=== PATIENT | female | born 1990 | race Caucasian/White ===

== ENCOUNTER → 2017-09-30 15:34 | Outpatient (REF) | payer MEDICAID, SELFPAY ==
[2017-09-30 23:05] LABS: ALT 70 U/L (12-78); AST 104 U/L (15-37); Albumin 3.9 g/dL (3.4-5.0); Alkaline Phosphatase 102 U/L (46-116); Anion Gap 10.3 mmol/L (3-11); BUN 4 mg/dL (7-18); Bilirubin, Total 1.8 mg/dL (0.2-1.0); CO2 26.7 mmol/L (21.0-32.0); CREATININE 0.76 mg/dL (0.55-1.02); Calcium 8.7 mg/dL (8.5-10.1); Chloride 101 mmol/L (98-107); Glucose 106 mg/dL (70-100); Potassium 3.7 mmol/L (3.5-5.1); Sodium 138 mmol/L (136-145); Total Protein 7.1 g/dL (6.4-8.2)
[2017-10-01 16:25] LABS: Lipase 97 U/L (73-393)
[2017-10-02 11:12] LABS: Hepatitis C Ab w Rflx HCV PCR Negative (NEGAT)
[2017-10-02 11:31] LABS: HIV-1/2 Ag & Ab Screen Negative (NEGAT)
[2017-10-02 13:08] LABS: Syphilis Serology (RPR) Negative (Negative)
[2017-10-02 14:03] LABS: Chlamydia Result Negative; GC Result Negative; Specimen Description VAGINAL
[2017-10-02 20:37] LABS: C.trach, Misc, Amplified RNA Negative (Negative); N.gonorr, Misc, Amplified RNA Negative (Negative); SOURCE: THROAT
== END ==
LOC: NCHCN 15:34
PROVIDERS: PCP Internal Medicine; Visit Provider Nurse Practitioner Family
DX: R94.5 Abnormal results of liver function studies (principal); Z11.3 Encounter for screening for infections with a predominantly sexual mode of transmission; Z11.4 Encounter for screening for human immunodeficiency virus [HIV]; Z11.59 Encounter for screening for other viral diseases; Z87.19 Personal history of other diseases of the digestive system
CPT/HCPCS: 80053; 83690; 86803; 87389; 87491; 87591; 86592

== ENCOUNTER 2017-11-04 16:21 | Outpatient (REF) | payer MEDICAID, SELFPAY ==
[2017-11-04 23:07] LABS: ALT 92 U/L (12-78); AST 142 U/L (15-37); Albumin 3.5 g/dL (3.4-5.0); Alkaline Phosphatase 127 U/L (46-116); Anion Gap 6.2 mmol/L (3-11); BUN 5 mg/dL (7-18); Bilirubin, Total 1.3 mg/dL (0.2-1.0); CO2 31.8 mmol/L (21.0-32.0); CREATININE 0.89 mg/dL (0.55-1.02); Calcium 8.9 mg/dL (8.5-10.1); Chloride 105 mmol/L (98-107); Glucose 102 mg/dL (70-100); Potassium 4.7 mmol/L (3.5-5.1); Sodium 143 mmol/L (136-145); Total Protein 6.9 g/dL (6.4-8.2)
[2017-11-06 13:47] LABS: Chlamydia Result Negative; GC Result Negative; Specimen Description URINE
== END 2017-11-04 16:41 ==
LOC: NCHCN 16:21
PROVIDERS: PCP Internal Medicine; Visit Provider Nurse Practitioner Family
DX: R30.0 Dysuria (principal); Z72.51 High risk heterosexual behavior; R94.5 Abnormal results of liver function studies; Z11.3 Encounter for screening for infections with a predominantly sexual mode of transmission
CPT/HCPCS: 80053; 87491; 87591; 87086

== ENCOUNTER 2018-05-20 15:49 | Outpatient (REF) | payer MEDICAID, SELFPAY ==
--- NOTE | 2018-05-20 14:45 | PAPFT_PTH ---
PATIENT: Courtney Craig LOC: [facility]#:[id number] AGE/SX: 28/F ROOM: RE05/20/[address]: Kaye Bettencourt : 1990 BED: DIS: 05/20/2018 SPEC #: [id number] RECD: 05/21/18 13:01 STATUS: PETR MARIE #: [id number] BELINDA: 05/20/18 14:[address]: Kaye Bettencourt DEPT: [facility] Cytology RECD BY: Cherry Pratt ENTERED: 05/21/18 13:01 SP TYPE: PAPFT OTHR DR: Demi Cárdenas Tissues: 1 - CX/ENDOCX FOR PAP SMEARS Procedures: PAP THIN PREP/UVM Screening HPV DNA PROBE Comments: [id number] (CHLAMYDIA/GC)
[2018-05-20 22:16] LABS: ALT 117 U/L (12-78); AST 210 U/L (15-37); Albumin 3.8 g/dL (3.4-5.0); Alkaline Phosphatase 120 U/L (46-116); Bilirubin, Total 1.4 mg/dL (0.2-1.0); Cholesterol 185 mg/dL (50-200); HDL Cholesterol 98 mg/dL (40-60); LDL CHOLESTEROL 73 mg/dL (<100); Total Protein 6.8 g/dL (6.4-8.2); Triglyceride 96 mg/dL (30-150)
[2018-05-20 22:25] LABS: Bilirubin, Direct 0.66 mg/dL (0.00-0.20)
[2018-05-24 10:59] LABS: HIV-1/2 Ag & Ab Screen Negative (NEGAT)
[2018-05-24 14:03] LABS: Chlamydia Result Negative; GC Result Negative; Specimen Description CERVIX
[2018-05-24 14:04] LABS: Chlamydia Result Negative; GC Result Negative; Specimen Description SEE COMMENTS
== END 2018-05-20 16:09 ==
LOC: NCHCN 15:49
PROVIDERS: PCP Internal Medicine; Visit Provider Registered Nurse
DX: R94.5 Abnormal results of liver function studies (principal); Z72.51 High risk heterosexual behavior; Z11.4 Encounter for screening for human immunodeficiency virus [HIV]; Z11.3 Encounter for screening for infections with a predominantly sexual mode of transmission; Z12.4 Encounter for screening for malignant neoplasm of cervix; Z11.51 Encounter for screening for human papillomavirus (HPV); Z01.419 Encounter for gynecological examination (general) (routine) without abnormal findings
CPT/HCPCS: 80061; 80076; 83721; 87389; 87491; 87591; 88142; 84443; 87624

== ENCOUNTER 2019-09-29 16:24 | Inpatient (IN) | payer MEDICAID, SELFPAY ==
[2019-09-29] VITALS (100 sets, daily range): BP systolic 111–161; BP diastolic 61–97; PULSE 65–105; RESP 7–24; TEMP 36.5–36.6; O2SAT 94–100
[2019-09-29 16:58] LABS: Bilirubin Negative (Negative); Blood Negative (Negative); Clarity Cloudy (Clear); Glucose Negative (Negative); Ketones Negative (Negative); Leukocyte Esterase Trace (Negative); Nitrite Negative (Negative); Specific Gravity >= 1.030 (1.005-1.025)
--- NOTE | 2019-09-29 17:00 | DI.CT_ITS ---
EXAM: CT ABDOMEN PELVIS W CLINICAL HISTORY: Upper abd pain, hx pancreatitis TECHNIQUE: COMPARISON: No exams were available for comparison FINDINGS: CT examination of the abdomen and pelvis was performed with bolus infusion of 77 cc of Omnipaque 350. Images obtained through the lung bases. Liver and spleen appear normal. Pancreas appears normal. Gallbladder and bile ducts are unremarkabl e. Adrenals and kidneys are unremarkable, no evidence of urinary tract obstruction or calcification. No significant abdominal hernia. No abdominal or pelvic adenopathy. Unremarkable appearance of memory care director st ructures. Appendix appears normal. There is normally position cecum and the jejunum lies in the left upper berry drant. There are multiple loops of proximal jejunum which are dilated with mildly thickened mad[place] in the left upper quadrant, the possibility of internal hernia or volvulus is raised, there is a modera te quantity fluid in fecal material throughout the colon and moderate fluid in the remaining small yolis wel. Abdominal aorta is of normal diameter. Superior mesenteric artery lies to the left of the superior m esenteric vein in its mid to distal course but the SMV lies anterior to the SMA near the origin of th e SMA. This finding could be associated with mesenteric volvulus. IMPRESSION: Abnormal group of dilated jejunal loops in left upper quadrant, question internal hernia or mesenteri c volvulus, possible low-grade obstruction. Appropriate follow-up studies requested.
--- NOTE | 2019-09-29 17:01 | ED.GENADUL_ITS ---
Discharge Plan Disposition Patient Disposition: [facility] INPATIENT Condition: Good Discharge Details Chief Complaint: Abd Prob Clinical Impression: Alcoholic gastritis, Alcohol withdrawal, Ileus, unspecified Admit Date/Time: 09/29/19 20:01 Admit Provider: Jaquan Paez Attending Provider: Jaquan Paez Primary Care Provider: Demi Cárdenas ED Provider: Klaus Oliver Discharge Data Discharge Date/Time-TO BE ENTERED AT DEPARTURE: 09/29/19 20:45 Medical Decision Making 29-year-old female presents to the ER stating that she is an alcoholic and has been drinking 5-7 8% 16 ounce beers per day. She has decided to stop drinking. Last drink was last night. She states she now has upper abdominal pain that began last night, it is constant. Similar to previous pancreatitis. Associated with nausea and emesis. She states she was seen at [facility] and left there as they were not doing anything. She arrives to the ER with pulse 96, blood pressure 161/97, temp of 36.6. She is tender in the upper abdomen. Her CIWA score is approximately 30. Differential diagnosis includes alcohol withdrawal syndrome, pancreatitis, gastritis, dehydration, electrolyte abnormalities. Patient was given 1 L fluid bolus, Ativan, Protonix, antiemetic. She is referred for laboratory testing and CT images. Labs noted white count 8, hematocrit 37, platelets 208. Chemistries with total bili 1.5, AST 40, ALT 28. Troponin is negative. Lipase negative. Alcohol level was unmeasurable. CT images: Dilatation of the proximal jejunum measuring up to 3 cm. No evidence of congenital malrotation. Slight stranding in the right upper quadrant. Swirling of the mesenteric vein around the superior mesenteric artery. 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 Case discussed with on-call surgery, Dr. Velez. Does not appear to be an acute surgical process. A lactate is 0.4. Dr. Velez recommends medical management, management of alcohol withdrawal, and does recommend upper GI with small bowel follow-through tomorrow. Case discussed with Dr. Paez and patient to be admitted. Lab Data Lab results reviewed: Yes I reviewed the patient's lab results. Labs: Laboratory Results - last 24 hr 09/29/19 09/29/19 09/29/19 16:54 17:25 17:25 WBC 8.68 RBC 3.91 L Hgb 13.0 Hct 37.2 MCV 95.1 H MCH 33.2 H MCHC 34.9 RDW 12.0 Plt Count 208 MPV 8.6 Immature Gran % 0.3 Neutrophils % 74.7 Lymphocytes % 19.0 Monocytes % 4.8 Eosinophils % 0.9 Basophils % 0.3 Absolute Neutrophils 6.47 Absolute Lymphocytes 1.65 Absolute Monocytes 0.42 Absolute Eosinophils 0.08 Absolute Basophils 0.03 Sodium 141 Potassium 4.0 Chloride 104 Carbon Dioxide 26.5 Anion Gap 10.5 BUN 7 Creatinine 0.79 Estimated GFR/1.73 m2 >= 60.00 Glucose 108 H Calcium 8.9 Magnesium 1.8 Total Bilirubin 1.5 H AST 40 H ALT 28 Alkaline Phosphatase 88 Troponin I < 0.05 Total Protein 7.6 Albumin 4.4 Amylase Lipase 76 Urine Color Yellow Urine Clarity Cloudy Urine pH 8.0 Ur Specific [place] >= 1.030 H Urine Protein 30 H Urine Ketones Negative Urine Blood Negative Urine Nitrite Negative Urine Bilirubin Negative Urine Urobilinogen 1.0 H Ur Leukocyte Esterase Trace H Urine RBC 0-2 Urine WBC 5-10 Ur Epithelial Cells Many Urine Crystals Negative Urine Bacteria Many Urine Casts Negative Urine Mucus Moderate Ur Culture Indicated? No/sq. contamination Urine Glucose Negative Ethyl Alcohol < 3.0 09/29/19 17:25 WBC RBC Hgb Hct MCV MCH MCHC RDW Plt Count MPV Immature Gran % Neutrophils % Lymphocytes % Monocytes % Eosinophils % Basophils % Absolute Neutrophils Absolute Lymphocytes Absolute Monocytes Absolute Eosinophils Absolute Basophils Sodium Potassium Chloride Carbon Dioxide Anion Gap BUN Creatinine Estimated GFR/1.73 m2 Glucose Calcium Magnesium Total Bilirubin AST ALT Alkaline Phosphatase Troponin I Total Protein Albumin Amylase 25 Lipase Urine Color Urine Clarity Urine pH Ur Specific [place] Urine Protein Urine Ketones Urine Blood Urine Nitrite Urine Bilirubin Urine Urobilinogen Ur Leukocyte Esterase Urine RBC Urine WBC Ur Epithelial Cells Urine Crystals Urine Bacteria Urine Casts Urine Mucus Ur Culture Indicated? Urine Glucose Ethyl Alcohol HPI General Mode of arrival: ambulatory . Date/Time Provider Initiated Documentation: 09/29/19 16:26 . Limitations to Documentation: no limitations . Information obtained by: patient . History of Present Illness 29 year old F presents to the emergency department with the chief complaint of Upper abdominal pain, similar to pancreatitis in the past, described as similar to prior episodes, Quality is described as dull and constant, and is localized to the abdomen. Patient reports radiation to back. Patient started experiencing this hour(s) and it has been constant. No relieving factors improve symptom(s), No exacerbating factors reported . Patient notes nausea/vomiting and other (Anxious). Patient did receive the following treatments prior to arrival, other (Was seen at [facility]) Related Data Home Medications Medication Instructions Recorded Confirmed buprenorphine-naloxone [Suboxone] 1 film BUCCAL DAILY 09/29/19 09/29/19 Allergies Allergy/AdvReac Type Severity Reaction Status Date / Time codeine Allergy Severe Nausea,vomiting Unverified 09/29/19 16:38 and feel like she is going to pass out General Stated Complaint: Abd Prob CARLOS: 2 Review of Systems Narrative: Drinking 5-7 8% 16 ounce beers per day, last drink last night. Feels anxious and shaky. Vomiting. Intolerant of PO. Upper abdominal pain. States she has had elevated liver enzymes in the past and is 'worried' about them - wishing to cease drinking. 8 systems reviewed and otherwise negative. [facility] Medical History Anxiety with depression (Chronic) Endometriosis not confirmed with biopsy Female pelvic inflammatory disease after IUD HGSIL (high grade squamous intraepithelial lesion) on Pap smear of cervix (Acute) History of attempted suicide (Acute) History of pancreatitis (Acute) Hypothyroidism (Chronic) Opioid abuse, in remission (Chronic) Protein C deficiency (Chronic) Surgical History Laparoscopy, diagnostic Social History Smoking/Tobacco Use Status: Never Alcohol Intake: current Alcohol Intake frequency: 3 or more drinks per day Alcohol type: beer Drug use: Daily Substance use type: former substance user and marijuana Do you feel safe at home: Yes Do you feel safe in your relationship?: Yes Exam Narrative Exam Narrative: GEN: awake, alert, oriented 3. Tremulous HEAD: Normocephalic, atraumatic ENT: Mucous membranes moist, oropharynx unremarkable, External ear exam unremarkable EYES: PERRL, EOMI NECK: Full ROM, no KENTON, no menigismus CHEST/RESP: Nontender, clear to auscultation bilateral, no wheeze/rhonchi/rales CARDIOVASCULAR: RRR, no murmur, rub bess. 2+ Rad pulse bilateral ABDOMEN: Soft, tender in the upper abdomen without rebound present, no mass. +Bowel sounds EXT: Full ROM, no edema, no rash Neuro: Grossly normal neurologic exam, conversant, interactive. Psych: Speech fluent, thoughts congruent, affect anxious Course Vital Signs Vital signs: Vital Signs Temperature 36.6 C 09/29/19 16:33 Pulse 96 H 09/29/19 16:33 Respiratory Rate 21 09/29/19 16:33 Blood Pressure 161/97 H 09/29/19 16:33 Pulse Oximetry 97 09/29/19 16:33 Temperature 36.6 C 09/29/19 16:33 Temperature Source Temporal Artery Scan 09/29/19 16:33 Pulse 96 H 09/29/19 16:33 Respiratory Rate 21 09/29/19 16:33 Respiratory Pattern Normal 09/29/19 16:40 Blood Pressure 161/97 H 09/29/19 16:33 Blood Pressure Position Sitting 09/29/19 16:33 Pulse Oximetry 97 09/29/19 16:33 Oxygen Delivery Method Room Air 09/29/19 16:33 Oxygen Flow Rate 0 09/29/19 16:33 Pain Level 7 09/29/19 16:33
[2019-09-29 17:07] LABS: Bacteria Many HPF (Negative); C & S Indicated? No/Sq. Contamination; Casts Negative LPF (Negative); Crystals Negative HPF (Negative); Epithelial Cells Many HPF (Negative); Mucus Moderate (Negative); RBC 0-2 HPF (0-2)
[2019-09-29 17:33] LABS: Abs Immature Grans 0.03 10^3/uL (0.0-0.06); Absolute Basophil Count 0.03 10^3/uL (0.0-0.2); Absolute Eosinophil Count 0.08 10^3/uL (0.0-0.7); Absolute Lymphocyte Count 1.65 10^3/uL (1.2-3.4); Absolute Monocyte Count 0.42 10^3/uL (0.1-0.8); Absolute Neutrophil Count 6.47 10^3/uL (1.2-6.7); Basophils % 0.3; Eosinophils % 0.9; HCT 37.2 % (36.0-46.0); Immature Grans % 0.3; MCH 33.2 pg (27.0-33.0); MCHC 34.9 % (32.0-36.0); MCV 95.1 fL (80-95); MPV 8.6 fL (8.0-11.0); Monocytes % 4.8; Neutrophils % 74.7; Nucleated RBC 0 %; Platelet Count 208 10^3/uL (130-400); RBC 3.91 10^6/uL (3.93-5.22); RDW-SD 41.8 fL; WBC 8.68 10^3/uL (4.4-10.8)
[2019-09-29] MEDS: LORazepam 2 MG/ML VIAL IVP ×2 (17:34→21:30)
[2019-09-29] MEDS: Normal Saline 1,000 ML 1000 ML IV (17:35)
[2019-09-29] MEDS: Normal Saline Flush 10 ML SYR IVP ×3 (17:36→21:31)
[2019-09-29] MEDS: Pantoprazole 40 MG VIAL IVP (17:39)
[2019-09-29 17:47] LABS: Amylase 25 U/L (25-115)
[2019-09-29] MEDS: Ondansetron 4 MG/2 ML VIAL 8 MG IVP (17:48)
[2019-09-29] MEDS: Ketorolac 15 MG/ML VIAL IVP (17:48)
[2019-09-29 17:54] LABS: ALT 28 U/L (14-59); AST 40 U/L (15-37); Albumin 4.4 g/dL (3.4-5.0); Alkaline Phosphatase 88 U/L (46-116); Anion Gap 10.5 mmol/L (3-11); BUN 7 mg/dL (7-18); Bilirubin, Total 1.5 mg/dL (0.2-1.0); CO2 26.5 mmol/L (21.0-32.0); CREATININE 0.79 mg/dL (0.55-1.02); Calcium 8.9 mg/dL (8.5-10.1); Chloride 104 mmol/L (98-107); Glucose 108 mg/dL (74-106); Lipase 76 U/L (73-393); Magnesium 1.8 mg/dL (1.8-2.4); Sodium 141 mmol/L (136-145); Total Protein 7.6 g/dL (6.4-8.2)
[2019-09-29 18:01] LABS: ETHANOL BLOOD < 3.0 mg/dL (<3); Troponin I < 0.05 ng/mL (<0.06)
[2019-09-29] MEDS: Omnipaque 350 MG/ML 100 ML BTL IJ (18:12)
[2019-09-29] MEDS: Normal Saline - Diluent 50 ML VIAL IV (18:18)
[2019-09-29] MEDS: Normal Saline 1,000 ML 200 ML IV (18:34)
--- NOTE | 2019-09-29 19:14 | NUR.NOTE ---
Nursing Note: Patient resting comfortably in bed with eyes closed and even, unlabored respirations.
--- NOTE | 2019-09-29 19:26 | DI.VRAD_ITS ---
PROCEDURE INFORMATION: Exam: CT Abdomen And Pelvis With Contrast Exam date and time: 09/29/2019 5:01 PM Age: 29 years old Clinical indication: Localized; Patient HX: Severe upper abdominal pain, patient has HX of pancreatitis. Patient sts about 1 month ago. TECHNIQUE: Imaging protocol: Computed tomography of the abdomen and pelvis with intravenous contrast. Radiation optimization: All CT scans at this facility use at least one of these dose optimization techniques: automated exposure control; mA and/or kV adjustment per patient size (includes targeted exams where dose is matched to clinical indication); or iterative reconstruction. Contrast material: OMNIPAQUE 350; Contrast volume: 77 ml; Contrast route: INTRAVENOUS (IV); COMPARISON: No relevant prior studies available. FINDINGS: Liver: Normal. No mass. Gallbladder and bile ducts: Normal. No calcified stones. No ductal dilation. Pancreas: Normal. No ductal dilation. Spleen: Normal. No splenomegaly. Adrenals: Normal. No mass. Kidneys and ureters: Normal. No hydronephrosis. Stomach and bowel: Dilatation of the proximal jejunum measuring up to 3 cm in diameter with relatively collapsed mid and distal small bowel. No evidence of congenital malrotation. There is apparent mucosal thickening of the colon which probably reflects underdistention. Appendix: Normal appendix. Intraperitoneal space: Slight stranding in the right upper quadrant. No free air. Vasculature: Swirling of the superior mesenteric vein around the superior mesenteric artery with reversal of the normal orientation. Normal abdominal aorta. Lymph nodes: Unremarkable. No enlarged lymph nodes. Bladder: Unremarkable as visualized. Reproductive: Unremarkable as visualized. Bones/joints: Unremarkable. No acute fracture. Soft tissues: Unremarkable. IMPRESSION: 1. 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 There is slight stranding in the right upper quadrant which could reflect mild acute pancreatitis. 2. This report contains findings that may be critical to patient care. The findings were verbally communicated via telephone conference with FABIANA Mcdonough at 7:22 PM EDT on 09/29/2019. The findings were acknowledged and understood. Dictated and Authenticated by: Cullen Calderon MD. Ordering:SEN Enrique MD
[2019-09-29 19:37] LABS: Lactate 0.4 mmol/L (0.6-1.4)
--- NOTE | 2019-09-29 19:55 | W.PM.HP.N ---
Date of service: 09/29/19 Time of Service: 19:55 Assessment and Plan Assessment and plan (1) Alcohol withdrawal: Start date: 09/29/19 Status: Acute Assessment and plan: This is a 29-year-old lady [facility] who came to this institution frustrated with her care at an outside hospital though it appears she often will be admitted and leave AMA. She is does not appear to have adequate psychiatric support for evaluation and has been self treating by reviewing the [facility] ED report from earlier today. She may be going through alcohol withdrawal and opioid withdrawal if she was using fentanyl recently which is not screened by the urine drug screen. She does want to stop alcohol because concerns about liver failure and treatment of her abdominal wall tumors as well as chronic abdominal pain. She is scoring very high on the CIWA and will continue on IV Ativan with 1 dose of fentanyl IV for her diffuse body pain to attempt comfort for the patient to sleep the night. She is chronically on Suboxone with no other meds listed but according to outside document she may have been taking Wellbutrin intermittently with self treatment. She has a complicated mental status and needs to be evaluated by mental health before discharge from this acute stay. She may not be compliant with this follow through with the patient feeling victimized and she has a medical problem that everyone is missing. There was mention of PTSD on her outside records. She is not able to give history of abuse trauma at this time. She is in diffuse body pain for some time but continues to complain of abdominal pain which is diffuse and over her abdominal wall with these perceived bumps which may be subcutaneous fat without lipomas palpated on brief exam. She will also continue IV hydration and minimize oral intake because of her abdominal pain and possible atypical pancreatitis as manifested in her previous hospitalizations at [facility] with imaging findings of early pancreatitis but normal lipase which was later increased. She did leave AMA at her last two admissions at [facility] since 2018. Qualifiers: Complication of substance-induced condition: with unspecified complication Qualified Code(s): F10.239 - Alcohol dependence with withdrawal, unspecified (2) Alcoholic gastritis: Start date: 09/29/19 Status: Acute Assessment and plan: This may be contributing to her nausea and abdominal pain and will be started on Protonix IV. Qualifiers: Chronicity: acute Gastritis bleeding: without bleeding Qualified Code(s): K29.20 - Alcoholic gastritis without bleeding (3) Ileus, unspecified: Start date: 09/29/19 Status: Acute Assessment and plan: Patient has had 2 liquid bowel movements since admission and surgery will be consulted in the morning for evaluation with upper GI and small bowel follow through. Minimize oral intake overnight. There is concern of possible volvulus on CT which needs to be resolved. Patient has had no other surgeries than laparoscopy with salpingectomy bilaterally by history at [facility]. (4) Opioid abuse, in remission: Status: Chronic Assessment and plan: Patient's Suboxone dosing needs to be confirmed in the morning and continued for daily for now. She does go to [facility] rather than [facility]. History of Present Illness History of Present Illness Chief Complaint: Abdominal pain with alcohol withdrawal Narrative: This is a 29-year-old lady who has had problems alcohol and opioids most of her adult life who reported to the ED after being seen at an outside ED for the same problem earlier the same day. Reviewing [facility]'s ED report from rental agent and early afternoon of the same day of admission the patient was seen for abdominal pain with pancreatitis but had no elevation in her labs and it is questionable whether she had imaging at that time. Previously had been imaged with evidence of pancreatitis and a normal lipase which increased later during a hospital stay for acute pancreatitis. She stated that the ED at the outside institution was not listening to her and did not help her therefore she was brought to this hospital ED by car. With review of limited records it appeared she was seen by [facility] for depression and PTSD rather than a social problems specialist as reported. She is a very poor historian and admits to two previous hospitalizations at [facility] for pancreatitis and it appears both times she left AMA. There appears to be social chaos. In the [facility] ED earlier the day of admission at [facility], the physician documents patient admitting to taking her boyfriend's Wellbutrin off-and-on in an attempt to stop fentanyl though she is on Suboxone chronically. When I mention Suboxone as part of her interview she appeared to become agitated and said that she was being judged and she was really ill with need to see specialty care at [facility] at [facility] forher medical problems. She is concerned about bumps in her abdomen over the abdominal wall which no one can identify. She is also concerned about liver failure. This is why she is trying to quit alcohol. The reason she reported to this ED was for continued abdominal pain and that she wanted to quit alcohol. In the ED her labs were essentially benign with minimal elevation of liver functions and normal lipase. She did have abnormal CT scan of the abdomen findings with questionable ileus and concern for volvulus of small intestine as well as early pancreatitis. Surgery did not think patient was immediately surgical and wanted medical treatment for her alcohol withdrawal and follow-up surgical consultation in the morning with upper GI with small bowel follow-through. Before I saw the patient she had two painful, liquid brown stools which were heme negative. She was complaining of diffuse body pain but mostly abdominal pain and became very tremulous with total body shaking but was awake with severe agitation when questioning for medical and social history. Further history with not obtainable. Her CIWA score which was very high because of these agitated states but she became very sedated with IV Ativan. Review of Systems Narrative: 13 point review of systems otherwise unrevealing or unobtainable with patient avoiding conversation and becoming very agitated with review of history. She was having nausea with vomiting but no hematemesis. Stools were liquid. She did admit to using fentanyl or attempting to stop fentanyl when at [facility] ED. There may be an element of opioid withdrawal. [facility] Medical History (Updated 09/30/19 @ 06:36 by Jaquan Paez) Anxiety with depression (Acute) Endometriosis not confirmed with biopsy Female pelvic inflammatory disease after IUD HGSIL (high grade squamous intraepithelial lesion) on Pap smear of cervix (Acute) History of attempted suicide (Acute) History of pancreatitis (Acute) Hypothyroidism (Chronic) Opioid abuse, in remission (Chronic) Protein C deficiency Surgical History Laparoscopy, diagnostic Social History Smoking/Tobacco Use Status: Never Alcohol Intake: current Alcohol Intake frequency: 3 or more drinks per day Alcohol type: beer Drug use: Daily Substance use type: former substance user and marijuana Do you feel safe at home: Yes Do you feel safe in your relationship?: Yes Meds Home Medications and Allergies Home Medications Medication Instructions Recorded Confirmed Type buprenorphine-naloxone [Suboxone] 1 film BUCCAL DAILY 09/29/19 09/29/19 History Allergies Allergy/AdvReac Type Severity Reaction Status Date / Time codeine Allergy Severe Nausea,vomiting Unverified 09/29/19 16:38 and feel like she is going to pass out Exam Narrative Exam Narrative: General: The patient appears older than stated age and disheveled with depressed mood and flattened affect with increased anxiousness during conversation or with trial stimulation. She became very tremulous during exam. She had poor eye contact and flattened affect. She was in moderate severe distress when awakened and interviewed. HEENT: Normocephalic, eyes with pupils equal and react light symmetrically, extraocular movement active sclera anicteric. Oropharynx with dry mucosa and poor dentition with discoloration, caries and missing teeth. External ears normal. External nose normal. Neck: Supple without JVD. Back: Stooped posture with no CVA tenderness. Lungs: Fair aeration with clear breath sounds and no adventitious findings. No wheezing, rhonchi or focalizing rales. Breast: Exam deferred. Heart: Tachycardic rate with regular rhythm, no murmurs or gallops appreciated. Abdomen: Slightly protuberant but soft with no palpable masses subcutaneously as patient tends to point out during exam. Tenderness diffusely with minimal guarding and no [place] sign. No focalizing tenderness. No rebound. Bowel sounds are hypoactive but present in all quadrants. There are no tympany to percussion. Genital/rectal: Exam deferred. Extremities: Without clubbing, cyanosis or edema. Skin: Pale, warm and dry with and excoriations over extremities and face which appear old but no rash noted. Neuro: Cranial nerves II through XII grossly intact, no focalizing motor deficits. Diffuse rhythmic asked tremor over her entire body will become agitated patient fully awake and no tonic-clonic activity. This would resolve when patient was calmed. Psych: Added general description very agitated anxious with depressed mood, flat affect and poor eye contact. Remote and recent memory appear intact though the patient is evasive in position. She is expressing victimization. Results Imaging Imaging Studies: Exam: CT Abdomen And Pelvis With Contrast Exam date and time: 09/29/2019 5:01 PM Age: 29 years old Clinical indication: Localized; Patient HX: Severe upper abdominal pain, patient has HX of pancreatitis. Patient sts about 1 month ago. TECHNIQUE: Imaging protocol: Computed tomography of the abdomen and pelvis with intravenous contrast. Radiation optimization: All CT scans at this facility use at least one of these dose optimization techniques: automated exposure control; mA and/or kV adjustment per patient size (includes targeted exams where dose is matched to clinical indication); or iterative reconstruction. Contrast material: OMNIPAQUE 350; Contrast volume: 77 ml; Contrast route: INTRAVENOUS (IV); COMPARISON: No relevant prior studies available. FINDINGS: Liver: Normal. No mass. Gallbladder and bile ducts: Normal. No calcified stones. No ductal dilation. Pancreas: Normal. No ductal dilation. Spleen: Normal. No splenomegaly. Adrenals: Normal. No mass. Kidneys and ureters: Normal. No hydronephrosis. Stomach and bowel: Dilatation of the proximal jejunum measuring up to 3 cm in diameter with relatively collapsed mid and distal small bowel. No evidence of congenital malrotation. There is apparent mucosal thickening of the colon which probably reflects underdistention. Appendix: Normal appendix. Intraperitoneal space: Slight stranding in the right upper quadrant. No free air. Vasculature: Swirling of the superior mesenteric vein around the superior mesenteric artery with reversal of the normal orientation. Normal abdominal aorta. Lymph nodes: Unremarkable. No enlarged lymph nodes. Bladder: Unremarkable as visualized. Reproductive: Unremarkable as visualized. Bones/joints: Unremarkable. No acute fracture. Soft tissues: Unremarkable. IMPRESSION: 1. 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 There is slight stranding in the right upper quadrant which could reflect mild acute pancreatitis. 2. This report contains findings that may be critical to patient care. The findings were verbally communicated via telephone conference with FABIANA Mcdonough at 7:22 PM EDT on 09/29/2019. The findings were acknowledged and understood. Dictated and Authenticated by: Cullen Calderon MD. Labs Result diagrams: 09/29/19 17:25 09/29/19 17:25 Labs: Laboratory Results - last 24 hr 09/29/19 09/29/19 09/29/19 16:54 17:25 17:25 WBC 8.68 RBC 3.91 L Hgb 13.0 Hct 37.2 MCV 95.1 H MCH 33.2 H MCHC 34.9 RDW 12.0 Plt Count 208 MPV 8.6 Immature Gran % 0.3 Neutrophils % 74.7 Lymphocytes % 19.0 Monocytes % 4.8 Eosinophils % 0.9 Basophils % 0.3 Absolute Neutrophils 6.47 Absolute Lymphocytes 1.65 Absolute Monocytes 0.42 Absolute Eosinophils 0.08 Absolute Basophils 0.03 Sodium 141 Potassium 4.0 Chloride 104 Carbon Dioxide 26.5 Anion Gap 10.5 BUN 7 Creatinine 0.79 Estimated GFR/1.73 m2 >= 60.00 Glucose 108 H Lactate Calcium 8.9 Magnesium 1.8 Total Bilirubin 1.5 H AST 40 H ALT 28 Alkaline Phosphatase 88 Troponin I < 0.05 Total Protein 7.6 Albumin 4.4 Amylase Lipase 76 Urine Color Yellow Urine Clarity Cloudy Urine pH 8.0 Ur Specific Ranger >= 1.030 H Urine Protein 30 H Urine Ketones Negative Urine Blood Negative Urine Nitrite Negative Urine Bilirubin Negative Urine Urobilinogen 1.0 H Ur Leukocyte Esterase Trace H Urine RBC 0-2 Urine WBC 5-10 Ur Epithelial Cells Many Urine Crystals Negative Urine Bacteria Many Urine Casts Negative Urine Mucus Moderate Ur Culture Indicated? No/sq. contamination Urine Glucose Negative Ethyl Alcohol < 3.0 09/29/19 09/29/19 17:25 19:33 WBC RBC Hgb Hct MCV MCH MCHC RDW Plt Count MPV Immature Gran % Neutrophils % Lymphocytes % Monocytes % Eosinophils % Basophils % Absolute Neutrophils Absolute Lymphocytes Absolute Monocytes Absolute Eosinophils Absolute Basophils Sodium Potassium Chloride Carbon Dioxide Anion Gap BUN Creatinine Estimated GFR/1.73 m2 Glucose Lactate 0.4 L Calcium Magnesium Total Bilirubin AST ALT Alkaline Phosphatase Troponin I Total Protein Albumin Amylase 25 Lipase Urine Color Urine Clarity Urine pH Ur Specific Ranger Urine Protein Urine Ketones Urine Blood Urine Nitrite Urine Bilirubin Urine Urobilinogen Ur Leukocyte Esterase Urine RBC Urine WBC Ur Epithelial Cells Urine Crystals Urine Bacteria Urine Casts Urine Mucus Ur Culture Indicated? Urine Glucose Ethyl Alcohol Last Vital Signs Temp 36.6 C 09/29/19 16:33 Pulse 67 09/29/19 18:01 Resp 12 09/29/19 18:01 BP 111/65 09/29/19 18:01 Pulse Ox 97 09/29/19 18:01 COVID-19 Screening Had IN PERSON contact w/suspected or confirmed C-19 person: No
--- NOTE | 2019-09-29 20:40 | NUR.NOTE ---
Nursing Note: Report given to Bhavin in ICU, patient to go up in 10 minutes.
[2019-09-29 20:47] LABS: Bilirubin Negative (Negative); Blood Negative (Negative); Clarity Clear (Clear); Glucose Negative (Negative); Ketones 40 mg/dL (Negative); Leukocyte Esterase Negative (Negative); Nitrite Negative (Negative); Specific Gravity 1.015 (1.005-1.025); pH 7.5 (5-8)
[2019-09-29] MEDS: Ondansetron 4 MG/2 ML VIAL (21:29)
[2019-09-29 21:44] LABS: Tricyclic Antidepressants Negative (Negative)
[2019-09-29 21:47] LABS: *AMPHETAMINES SCREEN URINE Negative (Negative); *BARBITURATES SCREEN URINE Negative (Negative); *BENZODIAZEPINES SCREEN URINE Negative (Negative); Cannabinoids THC POSITIVE (Negative); Cocaine Screen,Urine Negative (Negative); METHADONE URINE SCREEN Negative (Negative); OPIATES URINE SCREEN Negative (Negative)
[2019-09-29] MEDS: Ketorolac 15 MG/ML VIAL (22:19)
[2019-09-30] VITALS (43 sets, daily range): BP systolic 109–132; BP diastolic 68–90; PULSE 61–91; RESP 9–26; TEMP 36.2–36.6; O2SAT 96–99
[2019-09-30] MEDS: LORazepam 2 MG/ML VIAL IVP (00:46)
[2019-09-30] MEDS: Normal Saline 1,000 ML 150 ML IV ×2 (00:47→06:52)
[2019-09-30] MEDS: fentaNYL 100 MCG/2 ML VIAL 50 MCG IVP (01:25)
[2019-09-30] MEDS: Ketorolac 15 MG/ML VIAL IVP ×2 (06:24→18:41)
[2019-09-30 06:47] LABS: Abs Immature Grans 0.01 10^3/uL (0.0-0.06); Absolute Basophil Count 0.02 10^3/uL (0.0-0.2); Absolute Eosinophil Count 0.15 10^3/uL (0.0-0.7); Absolute Lymphocyte Count 2.21 10^3/uL (1.2-3.4); Absolute Monocyte Count 0.26 10^3/uL (0.1-0.8); Absolute Neutrophil Count 2.48 10^3/uL (1.2-6.7); Basophils % 0.4; Eosinophils % 2.9; HCT 33.5 % (36.0-46.0); HGB 11.9 g/dL (11.2-15.7); Immature Grans % 0.2; Lymphocytes % 43.1; MCH 33.9 pg (27.0-33.0); MCHC 35.5 % (32.0-36.0); MCV 95.4 fL (80-95); MPV 9.2 fL (8.0-11.0); Monocytes % 5.1; Neutrophils % 48.3; Nucleated RBC 0 %; Platelet Count 148 10^3/uL (130-400); RBC 3.51 10^6/uL (3.93-5.22); RDW-SD 42.1 fL; WBC 5.13 10^3/uL (4.4-10.8)
[2019-09-30 06:53] LABS: Lipase 68 U/L (73-393)
[2019-09-30 07:00] LABS: PHOSPHORUS 2.9 mg/dL (2.6-4.7)
[2019-09-30 07:20] LABS: ALT 25 U/L (14-59); AST 40 U/L (15-37); Albumin 3.3 g/dL (3.4-5.0); Alkaline Phosphatase 71 U/L (46-116); Anion Gap 8.2 mmol/L (3-11); BUN 5 mg/dL (7-18); Bilirubin, Total 3.1 mg/dL (0.2-1.0); CO2 24.8 mmol/L (21.0-32.0); CREATININE 0.66 mg/dL (0.55-1.02); Calcium 7.6 mg/dL (8.5-10.1); Chloride 105 mmol/L (98-107); Glucose 86 mg/dL (74-106); Potassium 3.5 mmol/L (3.5-5.1); Sodium 138 mmol/L (136-145); TSH (W/Ref FT4) 8.99 uIU/mL (0.36-3.74)
[2019-09-30 07:41] LABS: FREE T4 0.77 ng/dL (0.76-1.46)
--- NOTE | 2019-09-30 07:53 | NUR.NOTE ---
It is unclear why the patient is on Suboxone and the patient did not give PM shift any clear answers. Pharmacy was able to confirm the dose with BRI and Dr. Knox was notified that we did not no the indication at this time. He agreed to administer it to the patient during this visit in attempts to not add to her withdrawal symptoms. Nursing Note:
[2019-09-30] MEDS: Pantoprazole 40 MG VIAL IVP ×2 (08:09→20:16)
[2019-09-30] MEDS: Buprenorphine/Naloxone 8 mg/2 mg FILM 1 EACH SL (08:10)
[2019-09-30] MEDS: Oxazepam 10 MG CAP PO ×4 (09:08→20:17)
[2019-09-30] MEDS: PHENobarbital 130 MG/ML VIAL 60 MG IVP (09:15)
--- NOTE | 2019-09-30 09:29 | PHA.REVIEW ---
Pharmacy Admission Review - Admission Clinical Review (Last Updated 09/29/19 @ 19:58 by Jaquan Paez) Alcoholic gastritis (Acute) Alcohol withdrawal (Acute) Ileus, unspecified (Acute) codeine Allergy (Severe, Unverified 09/29/19 16:38) Nausea,vomiting and feel like she is going to pass out Height 5 ft 4 in Weight 58 kg - Renal Dosing Renal Dosing: BUN 5 mg/dL (7-18) L 09/30/19 06:30 Creatinine 0.66 mg/dL (0.55-1.02) 09/30/19 06:30 Medications needing adjustments: Reviewed (CrCl ~89.59 mL/min, current meds okay) - Anticoagulation Anticoagulation: Hgb 11.9 g/dL (11.2-15.7) 09/30/19 06:30 Hct 33.5 % (36.0-46.0) L 09/30/19 06:30 Plt Count 148 10^3/uL (130-400) 09/30/19 06:30 Creatinine 0.66 mg/dL (0.55-1.02) 09/30/19 06:30 DVT Prohphylaxis: N/A (MD entered orders noting VTE heparin and VTE prophylaxis contraindicated) Therapeutic Anticoagulation: N/A - Opiate Usage Evaluate Pain Scale/Pains Meds: Reviewed (buprenorphine/naloxone) Scheduled Bowel Reg ordered if on Opiates?: No (has prn meds ordered) - Relevant Labs Sodium 138 mmol/L (136-145) 09/30/19 06:30 Potassium 3.5 mmol/L (3.5-5.1) 09/30/19 06:30 Chloride 105 mmol/L (98-107) 09/30/19 06:30 Phosphorus 2.9 mg/dL (2.6-4.7) 09/30/19 06:30 Magnesium 1.8 mg/dL (1.8-2.4) 09/29/19 17:25 Electrolytes, C-Reactive P, ESR: Reviewed (TSH 8.99) - DM Control DM Control: Glucose 86 mg/dL (74-106) 09/30/19 06:30 Insulin Dosing: N/A (No DM in medical history, glucose good) - Heart Failure/AK Heart Failure/AK: Troponin I < 0.05 ng/mL (<0.06) 09/29/19 17:25 EF%, BORA's, B-Blockers, Diuretics: N/A - BP Control BP Control: Blood Pressure 125/90 Blood Pressure 122/79 Blood Pressure 111/70 Blood Pressure 116/77 Blood Pressure 125/68 Blood Pressure 132/82 If elevated: N/A (BP looks good) - Qtc Review If Elevated: N/A (No EKG labs) - IV to PO Switch IV Medications: Reviewed (IV ketorolac, pantoprazle, and promethazine) - Home Meds Home Med List reviewed: Reviewed (Suboxone dose (8/2mg) confirmed using external med history) - Current meds Current Medication Order Review: Intervened (Watch for respiratory depression (lorazepam, suboxone, oxazepam). Discontinued DI meds (already given), and a dispensing machine order.) - Comments Comments/Follow Ups: Monitor TSH. Watch for med changes. CIWA score was 17 last night, but went down to 9 this morning.
[2019-09-30] MEDS: Normal Saline Flush 10 ML SYR IVP ×2 (09:54→20:20)
--- NOTE | 2019-09-30 10:53 | PDOC.CMIN ---
- If Service Date Differs Date of service: 09/30/19 Time of Service: 10:53 Care Management Initial Assess REASON FOR HOSPITALIZATION:: Ileus, alcoholic gastritis, alcohol withdrawal PAST MEDICAL HISTORY/PAST SURGICAL HISTORY:: Medical History. Anxiety with depression (Acute). Endometriosis. not confirmed with biopsy. Female pelvic inflammatory disease. after IUD. HGSIL (high grade squamous intraepithelial lesion) on Pap smear of cervix (Acute). History of attempted suicide (Acute). History of pancreatitis (Acute). Hypothyroidism (Chronic). Opioid abuse, in remission (Chronic). Protein C deficiency. Surgical History. Laparoscopy, diagnostic PREVIOUS FUNCTIONAL STATUS/SOCIAL/FAMILY SUPPORTS:: Per chart review, Courtney lives in [place] with her grandmother. CM was limited in information due to the pt not being able to engage during the interview. CURRENT FUNCTIONAL STATUS:: Courtney was lying in bed when CM met with her. Her eyes were closed while CM attempted to engage. Courtney mumbled quietly, and CM was not able to understand what she was trying to say. CM was not able to discuss her discharge plan at this time. CM will continue to follow. ADVANCE DIRECTIVES:: None on file at [facility]. Has patient been provided with info about the portal/API?: No Did the patient sign up for the portal?: No CODE STATUS:: Full Code INSURANCE COVERAGE / FINANCIAL ISSUES:: [employer] CURRENT HOME/COMMUNITY SERVICES/EQUIPMENT:: Currently on Suboxone through [facility] PRIMARY CARE PHYSICIAN:: Demi Cárdenas POTENTIAL DISCHARGE NEEDS:: Follow up/connect to [facility] for mental health concerns, disaster recovery manager, discuss rehab. PATIENT/FAMILY EDUCATION NEEDS:: Review discharge instructions, discussion of self care needs including ask me three. ANTICIPATED BARRIERS TO DISCHARGE:: None identified at this time. TRANSPORTATION:: Via private vehicle by family vs RCT PLAN:: Anticipate Courtney will return home when medically cleared. CM will discuss rehab options as Courtney has identified that she would like to stop drinking alcohol. CM will refer Courtney to a disaster recovery manager once she is more awake/ available to talk. CM will refer Courtney to [facility] for ongoing support with her mental health. CM will continue to follow.
[2019-09-30] MEDS: LORazepam 1 MG TAB PO/SL (13:26)
--- NOTE | 2019-09-30 14:00 | SCONE_ITS ---
Date of service: 09/30/19 Time of Service: 14:00 Assessment and Plan Assessment and plan (1) Abdominal pain: Status: Acute Assessment and plan: The patient does not have a surgical abdomen on exam. Her labs and lactate are normal. Her urgent issue is withdrawal from alcohol. She may also have a more chronic abdominal issue that needs further evaluation. An UGI with small bowel follow through has been ordered although the patient is too sleepy right now to drink the contrast. Further recommendations will be made pending results. History of Present Illness Narrative: This patient presented to the ER last night with nausea and vomiting. She has a significant history of ETOH intake and pancreatitis and had decided to stop drinking the day before presentation. Her CIWA score was high and she responded well to Ativan. She had a CT scan of her abdomen and pelvis that showed a possible volvulus or internal hernia. I reviewed the films last night and noted there is not an intestinal malrotation with the findings most suggestive of an internal hernia. The patient is very sedated today but notes she has not had vomiting. She had a BM last night. She notes intermittent LUQ discomfort for the past year. Review of Systems Unobtainable due to mental condition (Sedated) [facility] Medical History Anxiety with depression (Acute) Endometriosis not confirmed with biopsy Female pelvic inflammatory disease after IUD HGSIL (high grade squamous intraepithelial lesion) on Pap smear of cervix (Acute) History of attempted suicide (Acute) History of pancreatitis (Acute) Hypothyroidism (Chronic) Opioid abuse, in remission (Chronic) Protein C deficiency Surgical History Laparoscopy, diagnostic Social History Smoking/Tobacco Use Status: Never Alcohol Intake: current Alcohol Intake frequency: 3 or more drinks per day Alcohol type: beer Drug use: Daily Substance use type: former substance user and marijuana Do you feel safe at home: Yes Do you feel safe in your relationship?: Yes Exam Narrative Exam Narrative: Sedated but arousable Abdomen soft, non distended. Mild RUQ and LUQ tenderness to palpation. No peritonitis. Results Last Vital Signs Temp 97.2 F L 09/30/19 11:20 Pulse 71 09/30/19 09:18 Resp 11 L 09/30/19 11:20 BP 116/72 09/30/19 09:18 Pulse Ox 98 09/30/19 09:18 Labs Result diagrams: 09/30/19 06:30 09/30/19 06:30 Labs: Laboratory Results - last 24 hr 09/29/19 09/29/19 09/29/19 16:54 17:25 17:25 WBC 8.68 RBC 3.91 L Hgb 13.0 Hct 37.2 MCV 95.1 H MCH 33.2 H MCHC 34.9 RDW 12.0 Plt Count 208 MPV 8.6 Immature Gran % 0.3 Neutrophils % 74.7 Lymphocytes % 19.0 Monocytes % 4.8 Eosinophils % 0.9 Basophils % 0.3 Absolute Neutrophils 6.47 Absolute Lymphocytes 1.65 Absolute Monocytes 0.42 Absolute Eosinophils 0.08 Absolute Basophils 0.03 Sodium 141 Potassium 4.0 Chloride 104 Carbon Dioxide 26.5 Anion Gap 10.5 BUN 7 Creatinine 0.79 Estimated GFR/1.73 m2 >= 60.00 Glucose 108 H Lactate Calcium 8.9 Phosphorus Magnesium 1.8 Total Bilirubin 1.5 H AST 40 H ALT 28 Alkaline Phosphatase 88 Troponin I < 0.05 Total Protein 7.6 Albumin 4.4 Amylase Lipase 76 TSH Free T4 Urine Color Yellow Urine Clarity Cloudy Urine pH 8.0 Ur Specific [place] >= 1.030 H Urine Protein 30 H Urine Ketones Negative Urine Blood Negative Urine Nitrite Negative Urine Bilirubin Negative Urine Urobilinogen 1.0 H Ur Leukocyte Esterase Trace H Urine RBC 0-2 Urine WBC 5-10 Ur Epithelial Cells Many Urine Crystals Negative Urine Bacteria Many Urine Casts Negative Urine Mucus Moderate Ur Culture Indicated? No/sq. contamination Urine Glucose Negative Urine Opiates Screen Urine Methadone Screen Ur Barbiturates Screen Ur Tricyclics Screen Ur Amphetamines Screen U Benzodiazepines Scrn Urine Cocaine Screen Ur THC Screen Ethyl Alcohol < 3.0 09/29/19 09/29/19 09/29/19 17:25 19:33 20:35 WBC RBC Hgb Hct MCV MCH MCHC RDW Plt Count MPV Immature Gran % Neutrophils % Lymphocytes % Monocytes % Eosinophils % Basophils % Absolute Neutrophils Absolute Lymphocytes Absolute Monocytes Absolute Eosinophils Absolute Basophils Sodium Potassium Chloride Carbon Dioxide Anion Gap BUN Creatinine Estimated GFR/1.73 m2 Glucose Lactate 0.4 L Calcium Phosphorus Magnesium Total Bilirubin AST ALT Alkaline Phosphatase Troponin I Total Protein Albumin Amylase 25 Lipase TSH Free T4 Urine Color Urine Clarity Urine pH Ur Specific [place] Urine Protein Urine Ketones Urine Blood Urine Nitrite Urine Bilirubin Urine Urobilinogen Ur Leukocyte Esterase Urine RBC Urine WBC Ur Epithelial Cells Urine Crystals Urine Bacteria Urine Casts Urine Mucus Ur Culture Indicated? Urine Glucose Urine Opiates Screen Negative Urine Methadone Screen Negative Ur Barbiturates Screen Negative Ur Tricyclics Screen Negative Ur Amphetamines Screen Negative U Benzodiazepines Scrn Negative Urine Cocaine Screen Negative Ur THC Screen Positive A Ethyl Alcohol 09/29/19 09/30/19 09/30/19 20:35 06:30 06:30 WBC RBC Hgb Hct MCV MCH MCHC RDW Plt Count MPV Immature Gran % Neutrophils % Lymphocytes % Monocytes % Eosinophils % Basophils % Absolute Neutrophils Absolute Lymphocytes Absolute Monocytes Absolute Eosinophils Absolute Basophils Sodium 138 Potassium 3.5 Chloride 105 Carbon Dioxide 24.8 Anion Gap 8.2 BUN 5 L Creatinine 0.66 Estimated GFR/1.73 m2 >= 60.00 Glucose 86 Lactate Calcium 7.6 L Phosphorus 2.9 Magnesium Total Bilirubin 3.1 H AST 40 H ALT 25 Alkaline Phosphatase 71 Troponin I Total Protein 6.0 L Albumin 3.3 L Amylase Lipase TSH 8.99 H Free T4 0.77 Urine Color Yellow Urine Clarity Clear Urine pH 7.5 Ur Specific [place] 1.015 Urine Protein Negative Urine Ketones 40 H Urine Blood Negative Urine Nitrite Negative Urine Bilirubin Negative Urine Urobilinogen 1.0 H Ur Leukocyte Esterase Negative Urine RBC Urine WBC Ur Epithelial Cells Urine Crystals Urine Bacteria Urine Casts Urine Mucus Ur Culture Indicated? Urine Glucose Negative Urine Opiates Screen Urine Methadone Screen Ur Barbiturates Screen Ur Tricyclics Screen Ur Amphetamines Screen U Benzodiazepines Scrn Urine Cocaine Screen Ur THC Screen Ethyl Alcohol 09/30/19 09/30/19 06:30 06:30 WBC 5.13 D RBC 3.51 L Hgb 11.9 Hct 33.5 L MCV 95.4 H MCH 33.9 H MCHC 35.5 RDW 12.0 Plt Count 148 MPV 9.2 Immature Gran % 0.2 Neutrophils % 48.3 Lymphocytes % 43.1 Monocytes % 5.1 Eosinophils % 2.9 Basophils % 0.4 Absolute Neutrophils 2.48 Absolute Lymphocytes 2.21 Absolute Monocytes 0.26 Absolute Eosinophils 0.15 Absolute Basophils 0.02 Sodium Potassium Chloride Carbon Dioxide Anion Gap BUN Creatinine Estimated GFR/1.73 m2 Glucose Lactate Calcium Phosphorus Magnesium Total Bilirubin AST ALT Alkaline Phosphatase Troponin I Total Protein Albumin Amylase Lipase 68 TSH Free T4 Urine Color Urine Clarity Urine pH Ur Specific [place] Urine Protein Urine Ketones Urine Blood Urine Nitrite Urine Bilirubin Urine Urobilinogen Ur Leukocyte Esterase Urine RBC Urine WBC Ur Epithelial Cells Urine Crystals Urine Bacteria Urine Casts Urine Mucus Ur Culture Indicated? Urine Glucose Urine Opiates Screen Urine Methadone Screen Ur Barbiturates Screen Ur Tricyclics Screen Ur Amphetamines Screen U Benzodiazepines Scrn Urine Cocaine Screen Ur THC Screen Ethyl Alcohol
[2019-09-30 14:23] LABS: COVID-19 RT-PCR UVMMC Result Negative (Negative)
--- NOTE | 2019-09-30 14:23 | W.NUTCONSULT ---
Date of service: 09/30/19 Time of Service: 14:24 Nutritional Consult ASSESSMENT: 29 year old female admitted to ICU with alcohol withdrawl, alcoholic gastritis and ileus. Hx of pancreatitis. Following clear liquid diet with minimal intake due to n/v per nursing. Lipase wnl. Meds include MVI, thiamin, folic acid for repletion. Estimated Needs: [id number] kcal, 60-70 g protein, 1800 ml fluid. Suspect poorly nourished prior to admission in view of long hx of etoh and opioid abuse and low weight. NUTRITIONAL DIAGNOSIS: Increased nutrient needs in view of long standing hx of alcohol abuse INTERVENTION: Advance diet as tolerated, provide ensure clear TID replete with MVI, thiamin, folic acid MONITORING AND EVALUATION: weight, po intake, labs Time Spent in Nutritional Counseling and Treatment: 0 time spent face to face
--- NOTE | 2019-09-30 14:25 | NUR.NOTE ---
Nursing Note: Negative covid resulted reported by Lab @ [id number]
[2019-09-30] MEDS: Normal Saline 1,000 ML 100 ML IV (15:22)
[2019-10-01] VITALS (41 sets, daily range): BP systolic 107–145; BP diastolic 65–91; PULSE 63–101; RESP 9–22; TEMP 36.2–36.8; O2SAT 94–100
--- NOTE | 2019-10-01 | DI.RAD_ITS ---
EXAM: 2D digital imaging was performed. CLINICAL HISTORY: sbo vs volvulous. ETOH w/drawl. COMPARISON: No exams were available for comparison TECHNIQUE: Supine views of the abdomen performed. FINDINGS: BOWEL GAS PATTERN: Nondistended. CALCIFICATIONS: No radiopaque calcifications. OSSEOUS STRUCTURES: Normal for age. OTHER FINDINGS: None. IMPRESSION: 1. Nonobstructive bowel gas pattern. 2. No radiopaque calculi. DATA REPOSITORY: RADIATION DOSE DELIVERED:
[2019-10-01] MEDS: Ketorolac 15 MG/ML VIAL IVP ×3 (01:11→16:12)
[2019-10-01] MEDS: Normal Saline Flush 10 ML SYR IVP ×3 (01:12→20:10)
[2019-10-01] MEDS: LORazepam 2 MG/ML VIAL IVP ×3 (01:12→20:09)
[2019-10-01] MEDS: Normal Saline 1,000 ML 100 ML IV (01:28)
--- NOTE | 2019-10-01 08:16 | W.PM.PROGNOT ---
Date of Service Date of service: 10/01/19 Time of Service: 11:21 Assessment and Plan Assessment and plan (1) Alcohol withdrawal: Status: Acute Assessment and plan: S/p loading with phenobarbital. It appears that the scheduled serax is too sedating. D/c - and monitor. If ativan requirements go up, would start librium which can be titrated better. Continue vitamins. Qualifiers: Complication of substance-induced condition: with unspecified complication Qualified Code(s): F10.239 - Alcohol dependence with withdrawal, unspecified (2) Ileus, unspecified: Status: Acute Assessment and plan: Flat plate today read as negative. Discussed with general surgery - will give mag citrate. (3) Alcoholic gastritis: Status: Acute Assessment and plan: Continue IV protonix BID Qualifiers: Chronicity: acute Gastritis bleeding: without bleeding Qualified Code(s): K29.20 - Alcoholic gastritis without bleeding (4) Hypoglycemia: Status: Acute Assessment and plan: Add D5 to fluids and (5) Opioid abuse, in remission: Status: Chronic Assessment and plan: Continue suboxone (6) DVT prophylaxis: Status: Acute Assessment and plan: lovenox (has a h/o Proteinc C deficiency) (7) Discharge planning issues: Status: Acute Assessment and plan: Full code Keep in the ICU Subjective Subjective Interval history since last seen: Hypoglycemic to 50 this am. Tremulous slightly. Sedated most of the morning after the 10 mg of serax, nursing uncomfortable with giving any more. Arousable and cooperative now. Reports abdominal pain, both LUQ and RUQ. +nausea, - vomiting. Reports a small amount of flatus once. Reports swelling at Bilateral ankles a few days ago - asking if it could be due to alcohol. We discussed how poor dietary intake, salt retention, standing, heat can be responsible for this. Her ankles are not swollen now. Overall, feels like she has been hit by a truck. Last BM documented 2 days ago 09/28. CIWA score of 11 and 6 overnight. 11: nauseated, abdominal pain. Given toradol, phenergan, ativan. Made NPO pending results of the flat plate. Exam Narrative Exam Narrative: General: Pleasant, cooperative, but ill appearing female, HEENT: EOMI, MMM Heart: RRR, no m/r/g Lungs: CTAB Abdomen: soft, tenderin in BUQ, + hyperactive bowel sounds Extremities: no e/c/c BLE's, +1 pedal pulses B Objective Objective Clinical Data: Vital Signs Temperature 36.8 C 10/01/19 04:07 Temperature Source Temporal Artery Scan 10/01/19 04:07 Pulse 72 10/01/19 04:07 Pulse 67 09/30/19 22:02 Respiratory Rate 11 L 10/01/19 04:07 Respiratory Effort Non-Labored 10/01/19 04:07 Respiratory Depth Normal 10/01/19 04:07 Respiratory Pattern Normal 10/01/19 04:07 Blood Pressure 115/73 10/01/19 04:07 Blood Pressure Mean 87 10/01/19 04:07 Blood Pressure Position Supine 10/01/19 04:07 Pulse Oximetry 98 10/01/19 04:07 Oxygen Delivery Method Room Air 10/01/19 04:07 Oxygen Flow Rate 0 10/01/19 04:07 Pain Level 0 10/01/19 04:07 Intake & Output 09/30/19 09/30/19 10/01/19 11:59 23:59 11:59 Intake Total 1853.833 / 3825.500 1971.667 / 3825.500 340.5 / 340.5 Output Total 450 / 1625 1175 / 1625 1000 / 1000 Balance 1403.833 / 2200.500 796.667 / 2200.500 -659.5 / -659.5 Weight 58 kg Intake: IV 1853.833 / 3825.500 1971.667 / 3825.500 340.5 / 340.5 Output: Urine 450 / 1625 1175 / 1625 1000 / 1000 Other: Urine Color Yellow Yellow Straw Urine Appearance Clear Clear Clear Urine Odor Strong None None Comment No issues per patient report Voiding Methods Bedside Commode Bedside Commode Laboratory Results WBC 5.13 10^3/uL (4.4-10.8) D 09/30/19 06:30 RBC 3.51 10^6/uL (3.93-5.22) L 09/30/19 06:30 Hgb 11.9 g/dL (11.2-15.7) 09/30/19 06:30 Hct 33.5 % (36.0-46.0) L 09/30/19 06:30 MCV 95.4 fL (80-95) H 09/30/19 06:30 MCH 33.9 pg (27.0-33.0) H 09/30/19 06:30 MCHC 35.5 % (32.0-36.0) 09/30/19 06:30 RDW 12.0 % (11.7-14.6) 09/30/19 06:30 Plt Count 148 10^3/uL (130-400) 09/30/19 06:30 MPV 9.2 fL (8.0-11.0) 09/30/19 06:30 Immature Gran % 0.2 09/30/19 06:30 Neutrophils % 48.3 09/30/19 06:30 Lymphocytes % 43.1 09/30/19 06:30 Monocytes % 5.1 09/30/19 06:30 Eosinophils % 2.9 09/30/19 06:30 Basophils % 0.4 09/30/19 06:30 Absolute Neutrophils 2.48 10^3/uL (1.2-6.7) 09/30/19 06:30 Absolute Lymphocytes 2.21 10^3/uL (1.2-3.4) 09/30/19 06:30 Absolute Monocytes 0.26 10^3/uL (0.1-0.8) 09/30/19 06:30 Absolute Eosinophils 0.15 10^3/uL (0.0-0.7) 09/30/19 06:30 Absolute Basophils 0.02 10^3/uL (0.0-0.2) 09/30/19 06:30 Sodium 138 mmol/L (136-145) 09/30/19 06:30 Potassium 3.5 mmol/L (3.5-5.1) 09/30/19 06:30 Chloride 105 mmol/L (98-107) 09/30/19 06:30 Carbon Dioxide 24.8 mmol/L (21.0-32.0) 09/30/19 06:30 Anion Gap 8.2 mmol/L (3-11) 09/30/19 06:30 BUN 5 mg/dL (7-18) L 09/30/19 06:30 Creatinine 0.66 mg/dL (0.55-1.02) 09/30/19 06:30 Estimated GFR/1.73 m2 >= 60.00 (mL/min/1.73m2) 09/30/19 06:30 Glucose 86 mg/dL (74-106) 09/30/19 06:30 Lactate 0.4 mmol/L (0.6-1.4) L 09/29/19 19:33 Calcium 7.6 mg/dL (8.5-10.1) L 09/30/19 06:30 Phosphorus 2.9 mg/dL (2.6-4.7) 09/30/19 06:30 Magnesium 1.8 mg/dL (1.8-2.4) 09/29/19 17:25 Total Bilirubin 3.1 mg/dL (0.2-1.0) H 09/30/19 06:30 AST 40 U/L (15-37) H 09/30/19 06:30 ALT 25 U/L (14-59) 09/30/19 06:30 Alkaline Phosphatase 71 U/L (46-116) 09/30/19 06:30 Troponin I < 0.05 ng/mL (<0.06) 09/29/19 17:25 Total Protein 6.0 g/dL (6.4-8.2) L 09/30/19 06:30 Albumin 3.3 g/dL (3.4-5.0) L 09/30/19 06:30 Amylase 25 U/L (25-115) 09/29/19 17:25 Lipase 68 U/L (73-393) 09/30/19 06:30 TSH 8.99 uIU/mL (0.36-3.74) H 09/30/19 06:30 Free T4 0.77 ng/dL (0.76-1.46) 09/30/19 06:30 Urine Color Yellow (Yellow) 09/29/19 20:35 Urine Clarity Clear (Clear) 09/29/19 20:35 Urine pH 7.5 (5-8) 09/29/19 20:35 Ur Specific [place] 1.015 (1.005-1.025) 09/29/19 20:35 Urine Protein Negative mg/dL (Negative) 09/29/19 20:35 Urine Ketones 40 mg/dL (Negative) H 09/29/19 20:35 Urine Blood Negative (Negative) 09/29/19 20:35 Urine Nitrite Negative (Negative) 09/29/19 20:35 Urine Bilirubin Negative (Negative) 09/29/19 20:35 Urine Urobilinogen 1.0 EU/dL (Up TO 0.2) H 09/29/19 20:35 Ur Leukocyte Esterase Negative (Negative) 09/29/19 20:35 Urine RBC 0-2 HPF (0-2) 09/29/19 16:54 Urine WBC 5-10 HPF (0-5) 09/29/19 16:54 Ur Epithelial Cells Many HPF (Negative) 09/29/19 16:54 Urine Crystals Negative HPF (Negative) 09/29/19 16:54 Urine Bacteria Many HPF (Negative) 09/29/19 16:54 Urine Casts Negative LPF (Negative) 09/29/19 16:54 Urine Mucus Moderate (Negative) 09/29/19 16:54 Ur Culture Indicated? No/sq. contamination 09/29/19 16:54 Urine Glucose Negative mg/dL (Negative) 09/29/19 20:35 Urine Opiates Screen Negative (Negative) 09/29/19 20:35 Urine Methadone Screen Negative (Negative) 09/29/19 20:35 Ur Barbiturates Screen Negative (Negative) 09/29/19 20:35 Ur Tricyclics Screen Negative (Negative) 09/29/19 20:35 Ur Amphetamines Screen Negative (Negative) 09/29/19 20:35 U Benzodiazepines Scrn Negative (Negative) 09/29/19 20:35 Urine Cocaine Screen Negative (Negative) 09/29/19 20:35 Ur THC Screen Positive (Negative) A 09/29/19 20:35 Ethyl Alcohol < 3.0 mg/dL (<3) 09/29/19 17:25 COVID-19 PCR Negative (Negative) 09/29/19 20:20 Nasopharyn COVID-19 PCR Not Applicable 09/29/19 20:20 Ref Test Perform Site [place] [facility] lab 09/29/19 20:20 XR abdomen: No acute findings.
[2019-10-01] MEDS: Pantoprazole 40 MG VIAL IVP ×2 (09:00→20:09)
[2019-10-01] MEDS: Thiamine 100 MG TAB PO (09:01)
[2019-10-01] MEDS: Folic Acid 1 MG TAB PO (09:01)
[2019-10-01] MEDS: Oxazepam 10 MG CAP PO (09:01)
[2019-10-01] MEDS: Buprenorphine/Naloxone 8 mg/2 mg FILM 1 EACH SL (09:01)
[2019-10-01] MEDS: Multivitamin TAB 1 TAB PO (09:01)
[2019-10-01 09:34] LABS: Anion Gap 15.8 mmol/L (3-11); BUN 5 mg/dL (7-18); CO2 18.2 mmol/L (21.0-32.0); CREATININE 0.67 mg/dL (0.55-1.02); Calcium 7.8 mg/dL (8.5-10.1); Chloride 102 mmol/L (98-107); Glucose 50 mg/dL (74-106); Magnesium 1.6 mg/dL (1.8-2.4); Potassium 3.8 mmol/L (3.5-5.1); Sodium 136 mmol/L (136-145)
[2019-10-01] MEDS: Dextrose 50%-Water 25 GM/50 ML SYR IVP (10:23)
[2019-10-01] MEDS: DEXTROSE 5%-0.9% SALINE 1,000 ML 100 ML IV ×2 (10:37→21:51)
[2019-10-01] MEDS: MAGNESIUM SULFATE 2 GM/50 ML BAG IVPB (10:38)
--- NOTE | 2019-10-01 11:12 | PGE_ITS ---
Date of Service Date of service: 10/01/19 Time of Service: 11:12 Assessment and Plan Assessment and plan (1) Hypoglycemia: Status: Acute (2) Abdominal pain: Status: Acute (3) Protein C deficiency: Status: None (4) Hypothyroidism: Status: Chronic (5) Anxiety with depression: Status: Acute (6) Alcoholic gastritis: Status: Acute Qualifiers: Chronicity: acute Gastritis bleeding: without bleeding Qualified Code(s): K29.20 - Alcoholic gastritis without bleeding (7) Alcohol withdrawal: Status: Acute Qualifiers: Complication of substance-induced condition: with unspecified complication Qualified Code(s): F10.239 - Alcohol dependence with withdrawal, unspecified (8) Ileus, unspecified: Status: Acute Assessment and plan: pt had abdominal pain when she was first admitted through the ED. A CT was done which showed SBO vs volvulous. Pt was non- cooperative with imagining on 09/29. Today her abdom is soft and flat adn has nl bowel sounds. Flat plate shows nl bowel pattern but a lg amount of stool adn PO CT contrast still. Needs to have bowel movement. GI prophylaxis. treatment for ETOH w/drawl. Subjective Subjective Interval history since last seen: pt is mimnally responsive this am. She has received phenergan, but no ativan. BS was 52. pt indicates that she has pain in epigastric/RUQ region. It was reported to me that she has had x2 BM yest. However, there is o documentatio of this. She refused to have the GI series or flate plate of abdom done. flate plate is pd currently answers questions when aroused. a & o x 1 localizes to painful stimuli. Exam GI Inspection: normal to inspection Palpation: soft, no guarding, no hernias, no masses, nontender and No ascites Auscultation: normal bowel sounds Objective Objective Clinical Data: Abnormal lab results 10/01/19 Range/Units 08:50 Carbon Dioxide 18.2 L (21.0-32.0) mmol/L Anion Gap 15.8 H (3-11) mmol/L BUN 5 L (7-18) mg/dL Glucose 50 L (74-106) mg/dL Calcium 7.8 L (8.5-10.1) mg/dL Magnesium 1.6 L (1.8-2.4) mg/dL Vital Signs Temperature 36.8 C 10/01/19 04:07 Temperature Source Temporal Artery Scan 10/01/19 08:45 Pulse 70 10/01/19 10:01 Pulse 74 10/01/19 10:01 Respiratory Rate 13 10/01/19 10:01 Respiratory Effort Non-Labored 10/01/19 08:45 Respiratory Depth Normal 10/01/19 08:45 Respiratory Pattern Normal 10/01/19 08:45 Blood Pressure 113/67 10/01/19 10:01 Blood Pressure Mean 78 10/01/19 10:01 Blood Pressure Position Supine 10/01/19 04:07 Pulse Oximetry 98 10/01/19 10:01 Oxygen Delivery Method Room Air 10/01/19 04:07 Oxygen Flow Rate 0 10/01/19 04:07 Pain Level 6 10/01/19 09:02 Intake & Output 09/30/19 09/30/19 10/01/19 11:59 23:59 11:59 Intake Total 1853.833 / 3825.500 1971.667 / 3825.500 391.0 / 391.0 Output Total 450 / 1625 1175 / 1625 1850 / 1850 Balance 1403.833 / 2200.500 796.667 / 2200.500 -1459.0 / -1459.0 Weight 58 kg Intake: IV 1853.833 / 3825.500 1971.667 / 3825.500 391.0 / 391.0 Output: Urine 450 / 1625 1175 / 1625 1850 / 1850 Other: Urine Color Yellow Yellow Dark [place] Urine Appearance Clear Clear Clear Urine Odor Strong None Strong Comment No issues per patient report Voiding Methods Bedside Commode Bedside Commode Bedside Commode Laboratory Results WBC 5.13 10^3/uL (4.4-10.8) D 09/30/19 06:30 RBC 3.51 10^6/uL (3.93-5.22) L 09/30/19 06:30 Hgb 11.9 g/dL (11.2-15.7) 09/30/19 06:30 Hct 33.5 % (36.0-46.0) L 09/30/19 06:30 MCV 95.4 fL (80-95) H 09/30/19 06:30 MCH 33.9 pg (27.0-33.0) H 09/30/19 06:30 MCHC 35.5 % (32.0-36.0) 09/30/19 06:30 RDW 12.0 % (11.7-14.6) 09/30/19 06:30 Plt Count 148 10^3/uL (130-400) 09/30/19 06:30 MPV 9.2 fL (8.0-11.0) 09/30/19 06:30 Immature Gran % 0.2 09/30/19 06:30 Neutrophils % 48.3 09/30/19 06:30 Lymphocytes % 43.1 09/30/19 06:30 Monocytes % 5.1 09/30/19 06:30 Eosinophils % 2.9 09/30/19 06:30 Basophils % 0.4 09/30/19 06:30 Absolute Neutrophils 2.48 10^3/uL (1.2-6.7) 09/30/19 06:30 Absolute Lymphocytes 2.21 10^3/uL (1.2-3.4) 09/30/19 06:30 Absolute Monocytes 0.26 10^3/uL (0.1-0.8) 09/30/19 06:30 Absolute Eosinophils 0.15 10^3/uL (0.0-0.7) 09/30/19 06:30 Absolute Basophils 0.02 10^3/uL (0.0-0.2) 09/30/19 06:30 Sodium 136 mmol/L (136-145) 10/01/19 08:50 Potassium 3.8 mmol/L (3.5-5.1) 10/01/19 08:50 Chloride 102 mmol/L (98-107) 10/01/19 08:50 Carbon Dioxide 18.2 mmol/L (21.0-32.0) L 10/01/19 08:50 Anion Gap 15.8 mmol/L (3-11) H 10/01/19 08:50 BUN 5 mg/dL (7-18) L 10/01/19 08:50 Creatinine 0.67 mg/dL (0.55-1.02) 10/01/19 08:50 Estimated GFR/1.73 m2 >= 60.00 (mL/min/1.73m2) 10/01/19 08:50 Glucose 50 mg/dL (74-106) L 10/01/19 08:50 Lactate 0.4 mmol/L (0.6-1.4) L 09/29/19 19:33 Calcium 7.8 mg/dL (8.5-10.1) L 10/01/19 08:50 Phosphorus 2.9 mg/dL (2.6-4.7) 09/30/19 06:30 Magnesium 1.6 mg/dL (1.8-2.4) L 10/01/19 08:50 Total Bilirubin 3.1 mg/dL (0.2-1.0) H 09/30/19 06:30 AST 40 U/L (15-37) H 09/30/19 06:30 ALT 25 U/L (14-59) 09/30/19 06:30 Alkaline Phosphatase 71 U/L (46-116) 09/30/19 06:30 Troponin I < 0.05 ng/mL (<0.06) 09/29/19 17:25 Total Protein 6.0 g/dL (6.4-8.2) L 09/30/19 06:30 Albumin 3.3 g/dL (3.4-5.0) L 09/30/19 06:30 Amylase 25 U/L (25-115) 09/29/19 17:25 Lipase 68 U/L (73-393) 09/30/19 06:30 TSH 8.99 uIU/mL (0.36-3.74) H 09/30/19 06:30 Free T4 0.77 ng/dL (0.76-1.46) 09/30/19 06:30 Urine Color Yellow (Yellow) 09/29/19 20:35 Urine Clarity Clear (Clear) 09/29/19 20:35 Urine pH 7.5 (5-8) 09/29/19 20:35 Ur Specific [place] 1.015 (1.005-1.025) 09/29/19 20:35 Urine Protein Negative mg/dL (Negative) 09/29/19 20:35 Urine Ketones 40 mg/dL (Negative) H 09/29/19 20:35 Urine Blood Negative (Negative) 09/29/19 20:35 Urine Nitrite Negative (Negative) 09/29/19 20:35 Urine Bilirubin Negative (Negative) 09/29/19 20:35 Urine Urobilinogen 1.0 EU/dL (Up TO 0.2) H 09/29/19 20:35 Ur Leukocyte Esterase Negative (Negative) 09/29/19 20:35 Urine RBC 0-2 HPF (0-2) 09/29/19 16:54 Urine WBC 5-10 HPF (0-5) 08 16:54 Ur Epithelial Cells Many HPF (Negative) 09/29/19 16:54 Urine Crystals Negative HPF (Negative) 09/29/19 16:54 Urine Bacteria Many HPF (Negative) 09/29/19 16:54 Urine Casts Negative LPF (Negative) 09/29/19 16:54 Urine Mucus Moderate (Negative) 09/29/19 16:54 Ur Culture Indicated? No/sq. contamination 09/29/19 16:54 Urine Glucose Negative mg/dL (Negative) 09/29/19 20:35 Urine Opiates Screen Negative (Negative) 09/29/19 20:35 Urine Methadone Screen Negative (Negative) 09/29/19 20:35 Ur Barbiturates Screen Negative (Negative) 09/29/19 20:35 Ur Tricyclics Screen Negative (Negative) 09/29/19 20:35 Ur Amphetamines Screen Negative (Negative) 09/29/19 20:35 U Benzodiazepines Scrn Negative (Negative) 09/29/19 20:35 Urine Cocaine Screen Negative (Negative) 09/29/19 20:35 Ur THC Screen Positive (Negative) A 09/29/19 20:35 Ethyl Alcohol < 3.0 mg/dL (<3) 09/29/19 17:25 COVID-19 PCR Negative (Negative) 09/29/19 20:20 Nasopharyn COVID-19 PCR Not Applicable 09/29/19 20:20 Ref Test Perform Site [place] [facility] lab 09/29/19 20:20
--- NOTE | 2019-10-01 11:25 | DI.VRAD_ITS ---
PROCEDURE INFORMATION: Exam: XR Abdomen, 1 View Exam date and time: 10/01/2019 11:07 AM Age: 29 years old Clinical indication: Condition or disease; Other: ? Sbo/ vulvulous. ETOH withdrawl TECHNIQUE: Imaging protocol: XR of the abdomen. Views: Frontal supine view of the abdomen. 1 View. COMPARISON: CT ABDOMEN PELVIS W 09/29/2019 6:12 PM FINDINGS: Gastrointestinal tract: Normal. No bowel dilation. Nonspecific bowel gas pattern, without gaseous distension. Bones/joints: Unremarkable. IMPRESSION: No acute findings. Dictated and Authenticated by: Elisa Jacob MD. Ordering:DALIA Bruno MD
--- NOTE | 2019-10-01 11:34 | CMPROGNOTE_ITS ---
Care Management Progress Note S/O: Courtney remains minimally responsive at this time, CM continues to follow. A: 29 year old female admitted to [facility] 09/29/19 for Ileus, SBO, ETOH withdrawal. P: Courtney continues to be minimally responsive; limiting CM interaction. Anticipate Courtney will return home when medically cleared. CM will discuss rehab options as Courtney has identified that she would like to stop drinking alcohol. CM will refer Courtney to a excellence coach once she is more awake/ available to talk. CM will refer Courtney to [facility] for ongoing support with her mental health. CM continues to follow.
[2019-10-01] MEDS: ACETAMINOPHEN 1,000 MG/100 ML BTL 400 MG IVPB ×2 (12:07→20:09)
[2019-10-01] MEDS: Magnesium Citrate 300 ML BTL 150 ML PO (12:08)
[2019-10-01] MEDS: Enoxaparin 40 MG/0.4 ML SYR SC (12:08)
[2019-10-01] MEDS: FAMOTIDINE 20 MG/50 ML BAG 200 MG IVPB (16:11)
[2019-10-01] MEDS: Magnesium Citrate 300 ML BTL PO (16:15)
--- NOTE | 2019-10-01 18:48 | NUR.NOTE ---
Nursing Note: Pt has 150 mL of Magnesium Citrate on their bedside table. Pt has not drank it fully yet - has been off and on nauseas.
--- NOTE | 2019-10-01 20:12 | NUR.NOTE ---
went in at med pass to assess patient's pain, pt states it is not in control and she wants it gone, attempted to further educate on resolving pain, pt does not want further education, pt accused this investigative writer of wanting patient to suffer and not covering her pain. patient wants to go home. provider paged at this time
[2019-10-01] MEDS: Docusate Sodium 100 MG CAP PO (20:36)
[2019-10-01] MEDS: Polyethylene Glycol 3350 17 GM PACKET PO (20:37)
[2019-10-01] MEDS: Methylnaltrexone 12 MG/0.6 ML VIAL 8 MG SC (20:53)
[2019-10-02] VITALS (91 sets, daily range): BP systolic 111–152; BP diastolic 72–124; PULSE 58–130; RESP 8–30; TEMP 36.5; O2SAT 95–100
--- NOTE | 2019-10-02 | DI.RAD_ITS ---
EXAM: 2D digital imaging was performed. CLINICAL HISTORY: abdominal pain. COMPARISON: No exams were available for comparison TECHNIQUE: Supine views of the abdomen performed. FINDINGS: BOWEL GAS PATTERN: Nondistended. CALCIFICATIONS: No radiopaque calcifications. OSSEOUS STRUCTURES: Normal for age. OTHER FINDINGS: None. IMPRESSION: 1. Nonobstructive bowel gas pattern. 2. No radiopaque calculi. DATA REPOSITORY: RADIATION DOSE DELIVERED:
[2019-10-02] MEDS: LORazepam 2 MG/ML VIAL IVP ×4 (03:28→22:50)
[2019-10-02] MEDS: Ketorolac 15 MG/ML VIAL IVP (03:31)
--- NOTE | 2019-10-02 04:33 | NUR.NOTE ---
pt standing at bed putting on day clothes over monitor and IV line, this teletypewriter installer asked if there was anything she needed, pt began to raise her voice and yell at this teletypewriter installer, this teletypewriter installer attempted deescalate the situation by having the her sit down, pt dissmissed this teletypewriter installer from the room and refused this teletypewriter installer to further care for her.
[2019-10-02] MEDS: FAMOTIDINE 20 MG/50 ML BAG 200 MG IVPB ×2 (04:40→16:46)
[2019-10-02] MEDS: Milk of Magnesia 30 ML CUP PO (04:58)
[2019-10-02] MEDS: ACETAMINOPHEN 1,000 MG/100 ML BTL 400 MG IVPB ×3 (04:58→20:17)
[2019-10-02] MEDS: Normal Saline Flush 10 ML SYR IVP ×5 (05:14→22:51)
[2019-10-02 06:53] LABS: Abs Immature Grans 0.02 10^3/uL (0.0-0.06); Absolute Basophil Count 0.01 10^3/uL (0.0-0.2); Absolute Eosinophil Count 0.17 10^3/uL (0.0-0.7); Absolute Monocyte Count 0.27 10^3/uL (0.1-0.8); Absolute Neutrophil Count 3.26 10^3/uL (1.2-6.7); Basophils % 0.2; Eosinophils % 3.4; HGB 10.8 g/dL (11.2-15.7); Immature Grans % 0.4; Lymphocytes % 25.8; MCH 33.8 pg (27.0-33.0); MCV 93.8 fL (80-95); MPV 9.5 fL (8.0-11.0); Monocytes % 5.4; Neutrophils % 64.8; Nucleated RBC 0 %; Platelet Count 108 10^3/uL (130-400); RDW-SD 41.2 fL; WBC 5.03 10^3/uL (4.4-10.8)
[2019-10-02 07:06] LABS: Anion Gap 7.4 mmol/L (3-11); BUN 3 mg/dL (7-18); CO2 27.6 mmol/L (21.0-32.0); CREATININE 0.61 mg/dL (0.55-1.02); Calcium 7.7 mg/dL (8.5-10.1); Chloride 103 mmol/L (98-107); Glucose 93 mg/dL (74-106); Potassium 3.2 mmol/L (3.5-5.1); Sodium 138 mmol/L (136-145)
[2019-10-02] MEDS: Folic Acid 1 MG TAB PO (08:13)
[2019-10-02] MEDS: Multivitamin TAB 1 TAB PO (08:13)
[2019-10-02] MEDS: Thiamine 100 MG TAB PO (08:13)
[2019-10-02] MEDS: Docusate Sodium 100 MG CAP PO (08:13)
[2019-10-02] MEDS: Pantoprazole 40 MG VIAL IVP ×2 (08:14→20:19)
[2019-10-02] MEDS: Buprenorphine/Naloxone 8 mg/2 mg FILM 1 EACH SL (08:14)
--- NOTE | 2019-10-02 08:23 | CMPROGNOTE_ITS ---
Care Management Progress Note S/O: Courtney awoke this morning and became agitated, wanting to leave AMA, she was medicated for a CIWA of 26 after an evening of apparent cycling. When alert, she is focused on increased medications and CIWAs have reflected increased symptoms as well. CM continues to follow. A: 29 year old female admitted to [facility] 09/29/19 for Ileus, SBO, ETOH withdrawal. P: Courtney continues to be closely monitored, anticipate she will return home when medically cleared. CM will discuss rehab options as Courtney has identified that she would like to stop drinking alcohol. CM will refer Courtney to a call or contact centre coach once she is more awake/ available to talk. CM will refer Courtney to [facility] for ongoing support with her mental health. CM continues to follow.
--- NOTE | 2019-10-02 08:27 | PGE_ITS ---
Date of Service Date of service: 10/02/19 Time of Service: 11:40 Assessment and Plan Assessment and plan (1) Alcohol withdrawal: Status: Acute Assessment and plan: S/p loading with phenobarbital. Librium instituted in place of serax as she was too sedated on serax. Continue to monitor in the ICU. Continue vitamins. Qualifiers: Complication of substance-induced condition: with unspecified complication Qualified Code(s): F10.239 - Alcohol dependence with withdrawal, unspecified (2) Ileus, unspecified: Status: Resolved Assessment and plan: S/p multiple BMs at this point. Repeat flat plate is getting done now. I encouraged the patient to try broth/ensure clear. (3) Alcoholic gastritis: Status: Acute Assessment and plan: Continue IV protonix BID; pepcid IV added. Qualifiers: Chronicity: acute Gastritis bleeding: without bleeding Qualified Code(s): K29.20 - Alcoholic gastritis without bleeding (4) Hypoglycemia: Status: Resolved Assessment and plan: Continue D5 containing fluids. (5) Opioid abuse, in remission: Status: Chronic Assessment and plan: Continue suboxone (6) DVT prophylaxis: Status: Acute Assessment and plan: lovenox (has a h/o Proteinc C deficiency) (7) Discharge planning issues: Status: Acute Assessment and plan: Full code Keep in the ICU Subjective Subjective Interval history since last seen: Denies dizziness, chest pain, shortness of vasiliy ath. Reports some nausea. Abdominal pain is worst in LUQ. Had a large BM last night and stooling this morning. CIWA score 26 this am at 5:31. Got 4 mg of ativan IV. Started on librium 5 mg TID, now increased to 10 mg TID. Latest CIWA score is 12. Anxious, emotional, tearful. Wanted to leave AMA because she did not feel her pain was well managed. Vital signs stable. Exam Narrative Exam Narrative: General: anxious, tearful, restless female, pale HEENT: EOMI, MMM Heart: RRR, no m/r/g Lungs: CTAB Abdomen: soft, tenderin in LUQ, ? mild ascites Extremities: no obvious edema BLEs. Objective Objective Clinical Data: Abnormal lab results 10/01/19 10/02/19 10/02/19 Range/Units 08:50 06:30 06:30 RBC 3.20 L (3.93-5.22) 10^6/uL Hgb 10.8 L (11.2-15.7) g/dL Hct 30.0 L (36.0-46.0) % MCH 33.8 H (27.0-33.0) pg Plt Count 108 L (130-400) 10^3/uL Potassium 3.2 L (3.5-5.1) mmol/L Carbon Dioxide 18.2 L (21.0-32.0) mmol/L Anion Gap 15.8 H (3-11) mmol/L BUN 5 L 3 L (7-18) mg/dL Glucose 50 L (74-106) mg/dL Calcium 7.8 L 7.7 L (8.5-10.1) mg/dL Magnesium 1.6 L (1.8-2.4) mg/dL Vital Signs Temperature 36.5 C 10/02/19 04:43 Temperature Source Temporal Artery Scan 10/02/19 04:43 Pulse 60 10/02/19 06:01 Pulse 63 10/02/19 06:02 Respiratory Rate 13 10/02/19 07:35 Respiratory Effort Non-Labored 10/02/19 04:43 Respiratory Depth Normal 10/02/19 04:43 Respiratory Pattern Normal 10/02/19 04:43 Blood Pressure 125/77 10/02/19 06:01 Blood Pressure Mean 89 10/02/19 06:01 Blood Pressure Position Supine 10/01/19 04:07 Pulse Oximetry 97 10/02/19 07:35 Oxygen Delivery Method Room Air 10/02/19 04:43 Oxygen Flow Rate 0 10/02/19 04:43 Pain Level 8 10/02/19 05:14 Intake & Output 10/01/19 10/01/19 10/02/19 11:59 23:59 11:59 Intake Total 1306.0 / 3707.0 2401.0 / 3707.0 200.5 / 200.5 Output Total 2650 / 4050 1400 / 4050 3000 / 3000 Balance -1344.0 / -343.0 1001.0 / -343.0 -2799.5 / -2799.5 Intake: IV 1306.0 / 3707.0 2401.0 / 3707.0 200.5 / 200.5 Output: Urine 2650 / 3650 1000 / 3650 Stool 400 / 400 3000 / 3000 Other: Urine Color Light Courtney Yellow Yellow Urine Appearance Clear Clear Urine Odor Strong None Comment mixed with stool o/n Stool Occult Blood Negative Negative Stool Size Large Large Stool Characteristics Liquid Liquid Brown Voiding Methods Bedside Commode Bedside Commode Laboratory Results WBC 5.03 10^3/uL (4.4-10.8) 10/02/19 06:30 RBC 3.20 10^6/uL (3.93-5.22) L 10/02/19 06:30 Hgb 10.8 g/dL (11.2-15.7) L 10/02/19 06:30 Hct 30.0 % (36.0-46.0) L 10/02/19 06:30 MCV 93.8 fL (80-95) 10/02/19 06:30 MCH 33.8 pg (27.0-33.0) H 10/02/19 06:30 MCHC 36.0 % (32.0-36.0) 10/02/19 06:30 RDW 12.0 % (11.7-14.6) 10/02/19 06:30 Plt Count 108 10^3/uL (130-400) L 10/02/19 06:30 MPV 9.5 fL (8.0-11.0) 10/02/19 06:30 Immature Gran % 0.4 10/02/19 06:30 Neutrophils % 64.8 10/02/19 06:30 Lymphocytes % 25.8 10/02/19 06:30 Monocytes % 5.4 10/02/19 06:30 Eosinophils % 3.4 10/02/19 06:30 Basophils % 0.2 10/02/19 06:30 Absolute Neutrophils 3.26 10^3/uL (1.2-6.7) 10/02/19 06:30 Absolute Lymphocytes 1.30 10^3/uL (1.2-3.4) 10/02/19 06:30 Absolute Monocytes 0.27 10^3/uL (0.1-0.8) 10/02/19 06:30 Absolute Eosinophils 0.17 10^3/uL (0.0-0.7) 10/02/19 06:30 Absolute Basophils 0.01 10^3/uL (0.0-0.2) 10/02/19 06:30 Sodium 138 mmol/L (136-145) 10/02/19 06:30 Potassium 3.2 mmol/L (3.5-5.1) L 10/02/19 06:30 Chloride 103 mmol/L (98-107) 10/02/19 06:30 Carbon Dioxide 27.6 mmol/L (21.0-32.0) 10/02/19 06:30 Anion Gap 7.4 mmol/L (3-11) 10/02/19 06:30 BUN 3 mg/dL (7-18) L 10/02/19 06:30 Creatinine 0.61 mg/dL (0.55-1.02) 10/02/19 06:30 Estimated GFR/1.73 m2 >= 60.00 (mL/min/1.73m2) 10/02/19 06:30 Glucose 93 mg/dL (74-106) 10/02/19 06:30 Lactate 0.4 mmol/L (0.6-1.4) L 09/29/19 19:33 Calcium 7.7 mg/dL (8.5-10.1) L 10/02/19 06:30 Phosphorus 2.9 mg/dL (2.6-4.7) 09/30/19 06:30 Magnesium 2.0 mg/dL (1.8-2.4) 10/02/19 06:30 Total Bilirubin 3.1 mg/dL (0.2-1.0) H 09/30/19 06:30 AST 40 U/L (15-37) H 09/30/19 06:30 ALT 25 U/L (14-59) 09/30/19 06:30 Alkaline Phosphatase 71 U/L (46-116) 09/30/19 06:30 Troponin I < 0.05 ng/mL (<0.06) 09/29/19 17:25 Total Protein 6.0 g/dL (6.4-8.2) L 09/30/19 06:30 Albumin 3.3 g/dL (3.4-5.0) L 09/30/19 06:30 Amylase 25 U/L (25-115) 09/29/19 17:25 Lipase 68 U/L (73-393) 09/30/19 06:30 TSH 8.99 uIU/mL (0.36-3.74) H 09/30/19 06:30 Free T4 0.77 ng/dL (0.76-1.46) 09/30/19 06:30 Urine Color Yellow (Yellow) 09/29/19 20:35 Urine Clarity Clear (Clear) 09/29/19 20:35 Urine pH 7.5 (5-8) 09/29/19 20:35 Ur Specific [place] 1.015 (1.005-1.025) 09/29/19 20:35 Urine Protein Negative mg/dL (Negative) 09/29/19 20:35 Urine Ketones 40 mg/dL (Negative) H 09/29/19 20:35 Urine Blood Negative (Negative) 09/29/19 20:35 Urine Nitrite Negative (Negative) 09/29/19 20:35 Urine Bilirubin Negative (Negative) 09/29/19 20:35 Urine Urobilinogen 1.0 EU/dL (Up TO 0.2) H 09/29/19 20:35 Ur Leukocyte Esterase Negative (Negative) 09/29/19 20:35 Urine RBC 0-2 HPF (0-2) 09/29/19 16:54 Urine WBC 5-10 HPF (0-5) 09/29/19 16:54 Ur Epithelial Cells Many HPF (Negative) 09/29/19 16:54 Urine Crystals Negative HPF (Negative) 09/29/19 16:54 Urine Bacteria Many HPF (Negative) 09/29/19 16:54 Urine Casts Negative LPF (Negative) 09/29/19 16:54 Urine Mucus Moderate (Negative) 09/29/19 16:54 Ur Culture Indicated? No/sq. contamination 09/29/19 16:54 Urine Glucose Negative mg/dL (Negative) 09/29/19 20:35 Urine Opiates Screen Negative (Negative) 09/29/19 20:35 Urine Methadone Screen Negative (Negative) 09/29/19 20:35 Ur Barbiturates Screen Negative (Negative) 09/29/19 20:35 Ur Tricyclics Screen Negative (Negative) 09/29/19 20:35 Ur Amphetamines Screen Negative (Negative) 09/29/19 20:35 U Benzodiazepines Scrn Negative (Negative) 09/29/19 20:35 Urine Cocaine Screen Negative (Negative) 09/29/19 20:35 Ur THC Screen Positive (Negative) A 09/29/19 20:35 Ethyl Alcohol < 3.0 mg/dL (<3) 09/29/19 17:25 COVID-19 PCR Negative (Negative) 09/29/19 20:20 Nasopharyn COVID-19 PCR Not Applicable 09/29/19 20:20 Ref Test Perform Site [facility] lab 09/29/19 20:20
[2019-10-02] MEDS: Ketorolac 15 MG/ML VIAL 30 MG IVP ×2 (08:38→20:55)
[2019-10-02] MEDS: POTASSIUM CHLORIDE 20 MEQ/100 ML BAG 50 MEQ IVPB ×2 (08:39→10:46)
[2019-10-02] MEDS: DEXTROSE 5%-0.9% SALINE 1,000 ML 100 ML IV (10:46)
--- NOTE | 2019-10-02 12:19 | DI.VRAD_ITS ---
PROCEDURE INFORMATION: Exam: XR Abdomen, 1 View Exam date and time: 10/02/2019 11:45 AM Age: 29 years old Clinical indication: Other: Abdominal pain; Patient HX: Sbo vs volvulous. ETOH w/drawl TECHNIQUE: Imaging protocol: XR of the abdomen. Views: Frontal supine view of the abdomen. 1 View. COMPARISON: CR XR ABDOMEN FLAT PLATE 10/01/2019 10:55 AM FINDINGS: Gastrointestinal tract: Normal. No bowel dilation. Bones/joints: Unremarkable. IMPRESSION: No acute findings. Dictated and Authenticated by: Von Clayton MD. Ordering:ALFRED Pandey MD
[2019-10-02] MEDS: Enoxaparin 40 MG/0.4 ML SYR SC (12:28)
--- NOTE | 2019-10-02 14:21 | PGE_ITS ---
Date of Service Date of service: 10/02/19 Time of Service: 14:21 Assessment and Plan Assessment and plan (1) Abdominal pain: Status: Acute (2) Anxiety with depression: Status: Acute (3) Alcoholic gastritis: Status: Acute Qualifiers: Chronicity: acute Gastritis bleeding: without bleeding Qualified Code(s): K29.20 - Alcoholic gastritis without bleeding (4) Alcohol withdrawal: Status: Acute Qualifiers: Complication of substance-induced condition: with unspecified complication Qualified Code(s): F10.239 - Alcohol dependence with withdrawal, unspecified (5) Ileus, unspecified: Status: Resolved Assessment and plan: resolved. no acute abdom process xray- nl today pt had lg volume stool resting comfortably and no pain. continues to w/ draw/on w/draw protocol will re-eval at your request Objective Objective Clinical Data: Abnormal lab results 10/02/19 10/02/19 Range/Units 06:30 06:30 RBC 3.20 L (3.93-5.22) 10^6/uL Hgb 10.8 L (11.2-15.7) g/dL Hct 30.0 L (36.0-46.0) % MCH 33.8 H (27.0-33.0) pg Plt Count 108 L (130-400) 10^3/uL Potassium 3.2 L (3.5-5.1) mmol/L BUN 3 L (7-18) mg/dL Calcium 7.7 L (8.5-10.1) mg/dL Vital Signs Temperature 36.5 C 10/02/19 08:30 Temperature Source Temporal Artery Scan 10/02/19 08:30 Pulse 62 10/02/19 12:22 Pulse 69 10/02/19 13:00 Respiratory Rate 13 10/02/19 13:00 Respiratory Effort Non-Labored 10/02/19 08:30 Respiratory Depth Normal 10/02/19 08:30 Respiratory Pattern Normal 10/02/19 08:30 Blood Pressure 134/92 H 10/02/19 12:22 Blood Pressure Mean 102 10/02/19 12:22 Blood Pressure Position Supine 10/01/19 04:07 Pulse Oximetry 99 10/02/19 13:00 Oxygen Delivery Method Room Air 10/02/19 04:43 Oxygen Flow Rate 0 10/02/19 04:43 Pain Level 6 10/02/19 12:29 Comment 10/02/19 08:30 Intake & Output 10/01/19 10/02/19 10/02/19 23:59 11:59 23:59 Intake Total 2401.0 / 3707.0 1300.5 / 1300.5 Output Total 1400 / 4050 3400 / 3400 Balance 1001.0 / -343.0 -2099.5 / -2099.5 Intake: IV 2401.0 / 3707.0 1300.5 / 1300.5 Output: Urine 1000 / 3650 Stool 400 / 400 3400 / 3400 Other: Urine Color Yellow Yellow Urine Appearance Clear Urine Odor None Comment mixed with stool o/n Stool Occult Blood Negative Negative Stool Size Large Large Stool Characteristics Liquid Liquid Voiding Methods Bedside Commode Laboratory Results WBC 5.03 10^3/uL (4.4-10.8) 10/02/19 06:30 RBC 3.20 10^6/uL (3.93-5.22) L 10/02/19 06:30 Hgb 10.8 g/dL (11.2-15.7) L 10/02/19 06:30 Hct 30.0 % (36.0-46.0) L 10/02/19 06:30 MCV 93.8 fL (80-95) 10/02/19 06:30 MCH 33.8 pg (27.0-33.0) H 10/02/19 06:30 MCHC 36.0 % (32.0-36.0) 10/02/19 06:30 RDW 12.0 % (11.7-14.6) 10/02/19 06:30 Plt Count 108 10^3/uL (130-400) L 10/02/19 06:30 MPV 9.5 fL (8.0-11.0) 10/02/19 06:30 Immature Gran % 0.4 10/02/19 06:30 Neutrophils % 64.8 10/02/19 06:30 Lymphocytes % 25.8 10/02/19 06:30 Monocytes % 5.4 10/02/19 06:30 Eosinophils % 3.4 10/02/19 06:30 Basophils % 0.2 10/02/19 06:30 Absolute Neutrophils 3.26 10^3/uL (1.2-6.7) 10/02/19 06:30 Absolute Lymphocytes 1.30 10^3/uL (1.2-3.4) 10/02/19 06:30 Absolute Monocytes 0.27 10^3/uL (0.1-0.8) 10/02/19 06:30 Absolute Eosinophils 0.17 10^3/uL (0.0-0.7) 10/02/19 06:30 Absolute Basophils 0.01 10^3/uL (0.0-0.2) 10/02/19 06:30 Sodium 138 mmol/L (136-145) 10/02/19 06:30 Potassium 3.2 mmol/L (3.5-5.1) L 10/02/19 06:30 Chloride 103 mmol/L (98-107) 10/02/19 06:30 Carbon Dioxide 27.6 mmol/L (21.0-32.0) 10/02/19 06:30 Anion Gap 7.4 mmol/L (3-11) 10/02/19 06:30 BUN 3 mg/dL (7-18) L 10/02/19 06:30 Creatinine 0.61 mg/dL (0.55-1.02) 10/02/19 06:30 Estimated GFR/1.73 m2 >= 60.00 (mL/min/1.73m2) 10/02/19 06:30 Glucose 93 mg/dL (74-106) 10/02/19 06:30 Lactate 0.4 mmol/L (0.6-1.4) L 09/29/19 19:33 Calcium 7.7 mg/dL (8.5-10.1) L 10/02/19 06:30 Phosphorus 2.9 mg/dL (2.6-4.7) 09/30/19 06:30 Magnesium 2.0 mg/dL (1.8-2.4) 10/02/19 06:30 Total Bilirubin 3.1 mg/dL (0.2-1.0) H 09/30/19 06:30 AST 40 U/L (15-37) H 09/30/19 06:30 ALT 25 U/L (14-59) 09/30/19 06:30 Alkaline Phosphatase 71 U/L (46-116) 09/30/19 06:30 Troponin I < 0.05 ng/mL (<0.06) 09/29/19 17:25 Total Protein 6.0 g/dL (6.4-8.2) L 09/30/19 06:30 Albumin 3.3 g/dL (3.4-5.0) L 09/30/19 06:30 Amylase 25 U/L (25-115) 09/29/19 17:25 Lipase 68 U/L (73-393) 09/30/19 06:30 TSH 8.99 uIU/mL (0.36-3.74) H 09/30/19 06:30 Free T4 0.77 ng/dL (0.76-1.46) 09/30/19 06:30 Urine Color Yellow (Yellow) 09/29/19 20:35 Urine Clarity Clear (Clear) 09/29/19 20:35 Urine pH 7.5 (5-8) 09/29/19 20:35 Ur Specific [place] 1.015 (1.005-1.025) 09/29/19 20:35 Urine Protein Negative mg/dL (Negative) 09/29/19 20:35 Urine Ketones 40 mg/dL (Negative) H 09/29/19 20:35 Urine Blood Negative (Negative) 09/29/19 20:35 Urine Nitrite Negative (Negative) 09/29/19 20:35 Urine Bilirubin Negative (Negative) 09/29/19 20:35 Urine Urobilinogen 1.0 EU/dL (Up TO 0.2) H 09/29/19 20:35 Ur Leukocyte Esterase Negative (Negative) 09/29/19 20:35 Urine RBC 0-2 HPF (0-2) 09/29/19 16:54 Urine WBC 5-10 HPF (0-5) 09/29/19 16:54 Ur Epithelial Cells Many HPF (Negative) 09/29/19 16:54 Urine Crystals Negative HPF (Negative) 09/29/19 16:54 Urine Bacteria Many HPF (Negative) 09/29/19 16:54 Urine Casts Negative LPF (Negative) 09/29/19 16:54 Urine Mucus Moderate (Negative) 09/29/19 16:54 Ur Culture Indicated? No/sq. contamination 09/29/19 16:54 Urine Glucose Negative mg/dL (Negative) 09/29/19 20:35 Urine Opiates Screen Negative (Negative) 09/29/19 20:35 Urine Methadone Screen Negative (Negative) 09/29/19 20:35 Ur Barbiturates Screen Negative (Negative) 09/29/19 20:35 Ur Tricyclics Screen Negative (Negative) 09/29/19 20:35 Ur Amphetamines Screen Negative (Negative) 09/29/19 20:35 U Benzodiazepines Scrn Negative (Negative) 09/29/19 20:35 Urine Cocaine Screen Negative (Negative) 09/29/19 20:35 Ur THC Screen Positive (Negative) A 09/29/19 20:35 Ethyl Alcohol < 3.0 mg/dL (<3) 09/29/19 17:25 COVID-19 PCR Negative (Negative) 09/29/19 20:20 Nasopharyn COVID-19 PCR Not Applicable 09/29/19 20:20 Ref Test [facility] 09/29/19 20:20
--- NOTE | 2019-10-02 17:36 | NUR.NOTE ---
Nursing Note: Patient has been sleeping peacefully/no s/s of pain or discomfort at the moment. Respirations even and non-labored. MD Venkata aware of patient sleeping. Verbal order to not assess right now while patient is sleeping. Monitoring vitals via monitor. HR, O2 sats, RR all stable. IV site intact and draining.
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
[2019-10-03] VITALS (36 sets, daily range): BP systolic 107–136; BP diastolic 71–102; PULSE 60–113; RESP 10–27; TEMP 36.3–36.7; O2SAT 91–100
--- NOTE | 2019-10-03 | DI.RAD_ITS ---
EXAM: XR CERVICAL SPINE COMP 4-5V CLINICAL HISTORY: neck pain. TECHNIQUE: 2D digital imaging was performed. COMPARISON: No exams were available for comparison FINDINGS: BONES: No fracture or destructive lesion. Vertebral bodies are unremarkable. DISKS: Intervertebral disc spaces are maintained. ALIGNMENT: Cervical spinal alignment is within normal limits. The odontoid and atlantoaxial articulat ions are normal. SOFT TISSUE: Normal. The lung apices are clear. IMPRESSION: Unremarkable radiographs of the cervical spine. DATA REPOSITORY: RADIATION DOSE DELIVERED:
--- NOTE | 2019-10-03 | DI.CT_ITS ---
EXAM: CT ABDOMEN PELVIS W CLINICAL HISTORY: persistent abdominal pain TECHNIQUE: Imaging Protocol: Axial computed tomography images with coronal and sagittal reformatted images were created and reviewed CONTRAST MATERIAL: Intravenous: Omnipaque 350 Contrast volume:100 mL Oral: Yes COMPARISON: CT CT ABDOMEN PELVIS W from 09/29/2019 CR,XR XR ABDOMEN FLAT PLATE from 10/02/2019 FINDINGS: ABDOMEN: Lung Bases: Normal where visualized. Liver: Normal density. No measurable mass. The patient has a Noah's lobe which is a normal variant. Portal, Superior Mesenteric, and Splenic Veins: Unremarkable. Gallbladder and Biliary Tract: No radiodense calculus or dilation. Pancreas: Normal density, no abnormal calcifications or inflammatory process. Spleen: Normal. Note is made of an accessory spleen. Adrenals: No masses seen. Kidneys: Normal size, contour and axis. No radiodense stones or obstructive uropathy. No masses seen. There is a duplicated left renal collecting system. Abdominal Aorta: Abdominal portion non-dilated. Bowel: No obstruction or bowel wall thickening. Appendix is unremarkable. The oral contrast has passe d into the colon all the way to the rectum. There are few colonic diverticula but no evidence of acu te diverticulitis. Peritoneal Cavity: No ascites, collection or mesenteric inflammatory response. Lymph Nodes: Within normal limits. Bones: Unremarkable. Soft Tissues: There are few foci of air in the subcutaneous tissues in the anterior abdominal wall. This may be injection sites. Please correlate clinically. No focal fluid collection is seen to sugg est an abscess. PELVIS: Bladder: Symmetric distention, no gross wall thickening. Reproductive Organs: Unremarkable as visualized. Lymph Nodes: Within normal limits. Bones: Within normal limits. IMPRESSION: 1. No evidence of bowel obstruction. RADIATION DOSE DELIVERED: 648.42mGy.cm Total DLP DATA REPOSITORY: All CT scans at this facility are submitted to the National Radiology Data Registry (NRDR) Dose Index Registry (DIR) with the [employer] [place] [employer] ([employer]). RADIATION OPTIMIZATION: All CT scans at this facility use at least one of these dose optimization te chniques: automated exposure control; mA and/or kV adjustment per patient size (includes targeted exa ms where dose is matched to clinical indication); or iterative reconstruction.
--- NOTE | 2019-10-03 | DI.RAD_ITS ---
EXAM: XR THORACIC SPINE COMPLETE CLINICAL HISTORY: back pain. TECHNIQUE: 2D digital imaging was performed. COMPARISON: No exams were available for comparison FINDINGS: BONES: There is no fracture or destructive lesion. The vertebral bodies and posterior elements are un remarkable. DISKS:Alignment is within normal limits. Interverebral disc spaces are maintained. SOFT TISSUE: Visualized lungs are clear. IMPRESSION: Unremarkable radiographs of the thoracic spine. DATA REPOSITORY: RADIATION DOSE DELIVERED:
[2019-10-03] MEDS: ACETAMINOPHEN 1,000 MG/100 ML BTL 400 MG IVPB ×2 (04:48→12:22)
[2019-10-03] MEDS: FAMOTIDINE 20 MG/50 ML BAG 200 MG IVPB (04:51)
[2019-10-03] MEDS: LORazepam 2 MG/ML VIAL IVP ×2 (05:46→09:27)
[2019-10-03] MEDS: Ketorolac 15 MG/ML VIAL 30 MG IVP ×2 (05:47→11:16)
[2019-10-03 07:01] LABS: Abs Immature Grans 0.01 10^3/uL (0.0-0.06); Absolute Basophil Count 0.02 10^3/uL (0.0-0.2); Absolute Eosinophil Count 0.19 10^3/uL (0.0-0.7); Absolute Lymphocyte Count 1.53 10^3/uL (1.2-3.4); Absolute Monocyte Count 0.24 10^3/uL (0.1-0.8); Absolute Neutrophil Count 1.62 10^3/uL (1.2-6.7); Basophils % 0.6; Eosinophils % 5.3; HGB 11.7 g/dL (11.2-15.7); Immature Grans % 0.3; Lymphocytes % 42.4; MCHC 35.5 % (32.0-36.0); MPV 9.4 fL (8.0-11.0); Monocytes % 6.6; Neutrophils % 44.8; Nucleated RBC 0 %; Platelet Count 125 10^3/uL (130-400); RBC 3.55 10^6/uL (3.93-5.22); RDW 11.9 % (11.7-14.6); RDW-SD 40.4 fL; WBC 3.61 10^3/uL (4.4-10.8)
[2019-10-03 07:18] LABS: Anion Gap 7.4 mmol/L (3-11); BUN 2 mg/dL (7-18); CO2 26.6 mmol/L (21.0-32.0); CREATININE 0.67 mg/dL (0.55-1.02); Calcium 7.9 mg/dL (8.5-10.1); Chloride 105 mmol/L (98-107); Glucose 99 mg/dL (74-106); Magnesium 1.8 mg/dL (1.8-2.4); Potassium 3.4 mmol/L (3.5-5.1); Sodium 139 mmol/L (136-145)
[2019-10-03] MEDS: Buprenorphine/Naloxone 8 mg/2 mg FILM 1 EACH SL (07:32)
[2019-10-03] MEDS: Folic Acid 1 MG TAB PO (07:33)
[2019-10-03] MEDS: Multivitamin TAB 1 TAB PO (07:34)
[2019-10-03] MEDS: Pantoprazole 40 MG VIAL IVP (07:34)
[2019-10-03] MEDS: Thiamine 100 MG TAB PO (07:37)
--- NOTE | 2019-10-03 08:25 | PGE_ITS ---
Subjective Subjective Interval history since last seen: Lorazepam for CIWA 11 - IV. UOP 1700 overnight. Toradol x 2. Without relief. promethazine without result. Nauseated. Objective Objective Clinical Data: Abnormal lab results 10/03/19 10/03/19 Range/Units 06:25 06:25 WBC 3.61 L (4.4-10.8) 10^3/uL RBC 3.55 L (3.93-5.22) 10^6/uL Hct 33.0 L (36.0-46.0) % Plt Count 125 L (130-400) 10^3/uL Potassium 3.4 L (3.5-5.1) mmol/L BUN 2 L (7-18) mg/dL Calcium 7.9 L (8.5-10.1) mg/dL Vital Signs Temperature 36.5 C 10/03/19 07:34 Temperature Source Temporal Artery Scan 10/03/19 04:01 Pulse 69 10/03/19 04:01 Pulse 67 10/03/19 02:02 Respiratory Rate 12 10/03/19 04:01 Respiratory Effort 10/03/19 04:01 Respiratory Depth Normal 10/03/19 04:01 Respiratory Pattern Normal 10/03/19 04:01 Blood Pressure 113/71 10/03/19 04:01 Blood Pressure Mean 85 10/03/19 04:01 Blood Pressure Position Supine 10/03/19 04:01 Pulse Oximetry 97 10/03/19 04:01 Oxygen Delivery Method Room Air 10/03/19 04:01 Oxygen Flow Rate 0 10/03/19 04:01 Pain Level 9 10/03/19 07:34 Comment 10/02/19 08:30 Intake & Output 10/02/19 10/02/19 10/03/19 11:59 23:59 11:59 Intake Total 1611.0 / 3289.0 1678.0 / 3289.0 200 / 200 Output Total 3400 / 5000 1600 / 5000 1300 / 1300 Balance -1789.0 / -1711.0 78.0 / -1711.0 -1100 / -1100 Weight 60 kg Intake: IV 1381.0 / 2701.0 1320.0 / 2701.0 200 / 200 Oral 230 / 588 358 / 588 Output: Urine 700 / 700 1000 / 1000 Stool 3400 / 4300 900 / 4300 300 / 300 Other: Urine Color Yellow [place] Urine Appearance Clear Clear Urine Odor None None Comment mixed with stool o/n voided on commode 700 cc orangish colored clear urine Stool Occult Blood Negative Negative Negative Stool Size Large Stool Characteristics Liquid Soft Liquid Liquid Brown Voiding Methods Bedside Commode Bedside Commode Laboratory Results WBC 3.61 10^3/uL (4.4-10.8) L 10/03/19 06:25 RBC 3.55 10^6/uL (3.93-5.22) L 10/03/19 06:25 Hgb 11.7 g/dL (11.2-15.7) 10/03/19 06:25 Hct 33.0 % (36.0-46.0) L 10/03/19 06:25 MCV 93.0 fL (80-95) 10/03/19 06:25 MCH 33.0 pg (27.0-33.0) 10/03/19 06:25 MCHC 35.5 % (32.0-36.0) 10/03/19 06:25 RDW 11.9 % (11.7-14.6) 10/03/19 06:25 Plt Count 125 10^3/uL (130-400) L 10/03/19 06:25 MPV 9.4 fL (8.0-11.0) 10/03/19 06:25 Immature Gran % 0.3 10/03/19 06:25 Neutrophils % 44.8 10/03/19 06:25 Lymphocytes % 42.4 10/03/19 06:25 Monocytes % 6.6 10/03/19 06:25 Eosinophils % 5.3 10/03/19 06:25 Basophils % 0.6 10/03/19 06:25 Absolute Neutrophils 1.62 10^3/uL (1.2-6.7) 10/03/19 06:25 Absolute Lymphocytes 1.53 10^3/uL (1.2-3.4) 10/03/19 06:25 Absolute Monocytes 0.24 10^3/uL (0.1-0.8) 10/03/19 06:25 Absolute Eosinophils 0.19 10^3/uL (0.0-0.7) 10/03/19 06:25 Absolute Basophils 0.02 10^3/uL (0.0-0.2) 10/03/19 06:25 Sodium 139 mmol/L (136-145) 10/03/19 06:25 Potassium 3.4 mmol/L (3.5-5.1) L 10/03/19 06:25 Chloride 105 mmol/L (98-107) 10/03/19 06:25 Carbon Dioxide 26.6 mmol/L (21.0-32.0) 10/03/19 06:25 Anion Gap 7.4 mmol/L (3-11) 10/03/19 06:25 BUN 2 mg/dL (7-18) L 10/03/19 06:25 Creatinine 0.67 mg/dL (0.55-1.02) 10/03/19 06:25 Estimated GFR/1.73 m2 >= 60.00 (mL/min/1.73m2) 10/03/19 06:25 Glucose 99 mg/dL (74-106) 10/03/19 06:25 Lactate 0.4 mmol/L (0.6-1.4) L 09/29/19 19:33 Calcium 7.9 mg/dL (8.5-10.1) L 10/03/19 06:25 Phosphorus 2.9 mg/dL (2.6-4.7) 09/30/19 06:30 Magnesium 1.8 mg/dL (1.8-2.4) 10/03/19 06:25 Total Bilirubin 3.1 mg/dL (0.2-1.0) H 09/30/19 06:30 AST 40 U/L (15-37) H 09/30/19 06:30 ALT 25 U/L (14-59) 09/30/19 06:30 Alkaline Phosphatase 71 U/L (46-116) 09/30/19 06:30 Troponin I < 0.05 ng/mL (<0.06) 09/29/19 17:25 Total Protein 6.0 g/dL (6.4-8.2) L 09/30/19 06:30 Albumin 3.3 g/dL (3.4-5.0) L 09/30/19 06:30 Amylase 25 U/L (25-115) 09/29/19 17:25 Lipase 68 U/L (73-393) 09/30/19 06:30 TSH 8.99 uIU/mL (0.36-3.74) H 09/30/19 06:30 Free T4 0.77 ng/dL (0.76-1.46) 09/30/19 06:30 Urine Color Yellow (Yellow) 09/29/19 20:35 Urine Clarity Clear (Clear) 09/29/19 20:35 Urine pH 7.5 (5-8) 09/29/19 20:35 Ur Specific [place]rish 1.015 (1.005-1.025) 09/29/19 20:35 Urine Protein Negative mg/dL (Negative) 09/29/19 20:35 Urine Ketones 40 mg/dL (Negative) H 09/29/19 20:35 Urine Blood Negative (Negative) 09/29/19 20:35 Urine Nitrite Negative (Negative) 09/29/19 20:35 Urine Bilirubin Negative (Negative) 09/29/19 20:35 Urine Urobilinogen 1.0 EU/dL (Up TO 0.2) H 09/29/19 20:35 Ur Leukocyte Esterase Negative (Negative) 09/29/19 20:35 Urine RBC 0-2 HPF (0-2) 09/29/19 16:54 Urine WBC 5-10 HPF (0-5) 09/29/19 16:54 Ur Epithelial Cells Many HPF (Negative) 09/29/19 16:54 Urine Crystals Negative HPF (Negative) 09/29/19 16:54 Urine Bacteria Many HPF (Negative) 09/29/19 16:54 Urine Casts Negative LPF (Negative) 09/29/19 16:54 Urine Mucus Moderate (Negative) 09/29/19 16:54 Ur Culture Indicated? No/sq. contamination 09/29/19 16:54 Urine Glucose Negative mg/dL (Negative) 09/29/19 20:35 Urine Opiates Screen Negative (Negative) 09/29/19 20:35 Urine Methadone Screen Negative (Negative) 09/29/19 20:35 Ur Barbiturates Screen Negative (Negative) 09/29/19 20:35 Ur Tricyclics Screen Negative (Negative) 09/29/19 20:35 Ur Amphetamines Screen Negative (Negative) 09/29/19 20:35 U Benzodiazepines Scrn Negative (Negative) 09/29/19 20:35 Urine Cocaine Screen Negative (Negative) 09/29/19 20:35 Ur THC Screen Positive (Negative) A 09/29/19 20:35 Ethyl Alcohol < 3.0 mg/dL (<3) 09/29/19 17:25 COVID-19 PCR Negative (Negative) 09/29/19 20:20 Nasopharyn COVID-19 PCR Not Applicable 09/29/19 20:20 Ref Test Perform Site [facility] lab 09/29/19 20:20
[2019-10-03] MEDS: DEXTROSE 5%-0.9% SALINE 1,000 ML 100 ML IV (09:40)
[2019-10-03] MEDS: POTASSIUM CHLORIDE 20 MEQ/100 ML BAG 50 MEQ IVPB ×2 (09:53→11:40)
--- NOTE | 2019-10-03 11:01 | NUR.NOTE ---
RN speaks to patient at length about options for healthy living to include a sponsor, a ocean lifeguard, a higher power, AA, good nutrition, applying for social security disability and how to handle her triggers. Patient appreciates talk but remains most troubled.Nursing Note:
[2019-10-03] MEDS: Enoxaparin 40 MG/0.4 ML SYR SC (11:53)
[2019-10-03] MEDS: Sucralfate 1 GM TAB PO (12:45)
[2019-10-03] MEDS: Ondansetron 4 MG/2 ML VIAL IVP (12:59)
[2019-10-03] MEDS: Normal Saline Flush 10 ML SYR IVP (12:59)
[2019-10-03] MEDS: Omnipaque 350 MG/ML 100 ML BTL IJ (13:27)
[2019-10-03] MEDS: Normal Saline - Diluent 50 ML VIAL IV (13:28)
--- NOTE | 2019-10-03 13:41 | NUR.NOTE ---
Patient is off the unit in the radiology dept. Nursing Note:
--- NOTE | 2019-10-03 14:39 | DSE_ITS ---
Date of service: 10/03/19 Time of Service: 14:40 DS: Diagnosis Discharge Diagnosis (1) Alcohol withdrawal: Status: Resolved (2) Abdominal pain: Status: Resolved (3) Ileus, unspecified: Status: Resolved (4) Alcoholic gastritis: Status: Acute (5) Anxiety with depression: Status: Chronic (6) Opioid abuse, in remission: Status: Chronic (7) Hypoglycemia: Status: Resolved (8) Subclinical hypothyroidism: Status: Chronic (9) Protein C deficiency: Status: Chronic (10) Hypokalemia: Status: Acute (11) COVID-19 ruled out by laboratory testing: Status: Acute Discharge Plan Disposition Patient Disposition: HOME Condition: Good Discharge Details Chief Complaint: Abd Prob Clinical Impression: Alcoholic gastritis, Alcohol withdrawal, Ileus, unspecified Reason For Visit: ILEUS SMALL BOWEL,ALCOHOL GASTRITIS,ALCOHOL WITHDR Admit Date/Time: 09/29/19 20:01 Admit Provider: Jaquan Paez Attending Provider: Jaquan Paez Primary Care Provider: Demi Cárdenas ED Provider: Klaus Oliver Hospital Course Hospital Course: Ms Craig is a 29 year old female with PMHx of alcohol abuse with prior episode of pancreatitis, as well as history of opioid dependence on suboxone therapy, as well as protein C deficiency and subclinical hypothyroidism, who was admitted to [facility] 09/29/2019 with abdominal pain, thought to be due to a combination of alcoholic gastritis and an ileus, as well as alcohol withdrawal. She was evaluated by general surgery, who did not feel that the patient had an acute surgical abdomen. She was not able to cooperate with a small bowel follow- through ordered by general surgery due to escalation of her alcohol withdrawal symptoms, for which she was transferred to the ICU on 09/30/2019 and required loading with phenobarbital. We did not give the patient narcotic analgesia due to the ileus and ensured she was on an aggressive bowel regimen, with which her ileus resolved. Her abdominal pain persisted for a while after, however, necessitating a repeat CT of her abdomen/pelvis, which was completely negative. Alcoholic gastritis is suspected and is being treated with a combination of a PPI and pepcid as well as carafate. Pain is now controlled. She remained in the ICU primarily for reasons of ongoing need for intravenous ativan boluses for alcohol withdrawal, but is doing markedly better now. She is medically ready for discharge home today with prn ativan for alcohol withdrawal symptoms. She is instructed to follow up with her PCP and manager of disaster recovery. She is to follow up with her suboxone clinic as well as mental health. Her last dose of suboxone was on 10/03/2019. Care for patient as well as completion of her discharge summary took 60 minutes on day of discharge. Home Meds and New Rx's Prescriptions: New multivitamin [Multiple Vitamins] Tablet 1 tab PO DAILY Qty: 30 RF: 0 sucralfate 1 gram Tablet 1 g PO AC & HS Qty: 120 RF: 0 thiamine mononitrate (vit B1) [Vitamin B-1 (mononitrate)] 100 mg Tablet 100 mg PO DAILY Qty: 30 RF: 0 lorazepam [Ativan] 1 mg tablet 1 mg PO Q6H PRN PRN (Reason: alcohol withdrawal) Qty: 12 RF: 0 ondansetron 4 mg tablet,disintegrating 4 mg PO Q6H PRN (Reason: nausea and vomiting) Qty: 12 RF: 0 acetaminophen [Tylenol] 325 mg tablet 650 mg PO Q6H PRN PRN (Reason: pain) Qty: 30 RF: 0 famotidine [Pepcid] 20 mg tablet 20 mg PO BID Qty: 60 RF: 0 pantoprazole [Protonix] 40 mg tablet,delayed release (DR/EC) 40 mg PO DAILY Qty: 30 RF: 0 Continued buprenorphine-naloxone [Suboxone] 8-2 mg film 1 film buccal DAILY RF: 0 Discharge Instructions Instructions: Gastritis (DC), Diet for Stomach Ulcers and Gastritis (ED), Abuse of Alcohol (DC) Additional Instructions: Follow up with your manager of disaster recovery, mental health, and PCP. Return to the hospital with any fever, bleeding, chest pain, shortness of breath. Returo to the hospital if you feel your alcohol withdrawal is uncontrollable with medications provided. Do not drink alcohol and take ativan. Stand Alone Forms: Nursing Discharge Form Referrals: Demi Cárdenas [Primary Care Provider] - Activity:: Activity as Tolerated Equipment/Supplies:: No Equipment Needed Diet:: gastritis diet Discharge Orders Discharge Orders: Discharge Order (Routine); Ordered 10/03/19 Ordered By: Katherin Hastings DS: Summary Status at Discharge Functional status at discharge: independent ambulation Overall status at discharge: patient is back to baseline Mental Status: mental status grossly normal Speech and Movement: speech and movement normal Mood: anxious mood Affect: labile affect Exam Narrative Exam Narrative: General: anxious pale female who looks markedly better today HEENT: EOMI, MMM Heart: RRR, no m/r/g Lungs: CTAB Abdomen: soft, + BS, reports being tender in BUQ. There is no rebound tenderness or fluid wave. No organomegaly. Extremities: no edema BLEs. Psych Mental Status: mental status grossly normal Speech and Movement: speech and movement normal Mood: anxious mood Affect: labile affect DS: Data Vitals/I&O Vitals and I&O: Vital Signs Temperature 36.6 C 10/03/19 12:22 Temperature Source Temporal Artery Scan 10/03/19 12:40 Pulse 73 10/03/19 12:40 Pulse 67 10/03/19 02:02 Respiratory Rate 11 L 10/03/19 12:40 Respiratory Effort 10/03/19 08:39 Respiratory Depth Normal 10/03/19 08:39 Respiratory Pattern Normal 10/03/19 08:39 Blood Pressure 132/91 H 10/03/19 12:40 Blood Pressure Mean 86 10/03/19 08:39 Blood Pressure Position Sitting 10/03/19 08:39 Pulse Oximetry 98 10/03/19 12:40 Oxygen Delivery Method Room Air 10/03/19 12:40 Oxygen Flow Rate 0 10/03/19 12:40 Pain Level 0 10/03/19 12:40 Comment 10/02/19 08:30 Intake & Output 10/02/19 10/03/19 10/03/19 23:59 11:59 23:59 Intake Total 1678.0 / 3289.0 409.167 / 409.167 Output Total 1600 / 5000 1300 / 1300 Balance 78.0 / -1711.0 -890.833 / -890.833 Weight 60 kg Intake: IV 1320.0 / 2701.0 289.167 / 289.167 Oral 358 / 588 120 / 120 Output: Urine 700 / 700 1000 / 1000 Stool 900 / 4300 300 / 300 Other: Urine Color [place] Yellow Urine Appearance Clear Clear Urine Odor None None Comment voided on commode 700 cc orangish colored clear urine Stool Occult Blood Negative Negative Stool Characteristics Soft Liquid Liquid Brown Voiding Methods Bedside Commode Bedside Commode Data Completed and Pending Completed studies during hospitalization [Text1]: Ct abdomen/pelvis 09/30/2019: Abnormal group of dilated jejunal loops in left upper quadrant, question internal hernia or mesenteric volvulus, possible low-grade obstruction. Appropriate follow-up studies requested. XR flat plate 10/02/2019: 1. Nonobstructive bowel gas pattern. 2. No radiopaque calculi. XR abdomen flat plate 10/03/2019: 1. Nonobstructive bowel gas pattern. 2. No radiopaque calculi. CT abdomen/pelvis w/wo contrast 10/03/2019: 1. No evidence of bowel obstruction. Labs on day of discharge: Labs from last 24 hours 10/03/19 10/03/19 06:25 06:25 WBC 3.61 L RBC 3.55 L Hgb 11.7 Hct 33.0 L MCV 93.0 MCH 33.0 MCHC 35.5 RDW 11.9 Plt Count 125 L MPV 9.4 Immature Gran % 0.3 Neutrophils % 44.8 Lymphocytes % 42.4 Monocytes % 6.6 Eosinophils % 5.3 Basophils % 0.6 Absolute Neutrophils 1.62 Absolute Lymphocytes 1.53 Absolute Monocytes 0.24 Absolute Eosinophils 0.19 Absolute Basophils 0.02 Sodium 139 Potassium 3.4 L Chloride 105 Carbon Dioxide 26.6 Anion Gap 7.4 BUN 2 L Creatinine 0.67 Estimated GFR/1.73 m2 >= 60.00 Glucose 99 Calcium 7.9 L Magnesium 1.8 [facility] Medical History Anxiety with depression (Chronic) Endometriosis not confirmed with biopsy Female pelvic inflammatory disease after IUD HGSIL (high grade squamous intraepithelial lesion) on Pap smear of cervix (Acute) History of attempted suicide (Acute) History of pancreatitis (Acute) Hypothyroidism (Chronic) Opioid abuse, in remission (Chronic) Protein C deficiency (Chronic) Surgical History Laparoscopy, diagnostic Social History Smoking/Tobacco Use Status: Never Alcohol Intake: current Alcohol Intake frequency: 3 or more drinks per day Alcohol type: beer Drug use: Daily Substance use type: former substance user and marijuana Do you feel safe at home: Yes Do you feel safe in your relationship?: Yes
--- NOTE | 2019-10-03 15:12 | NUR.NOTE ---
change of shift, pt comes out of room x 3, wants to leave immediately, assured would call CM to assist, pt back at desk to make sure you are charging my phone phone found on charge and brought to pt with ICU borematic machine operator to use while in room. CM called and arrived. Spoke with pt. Is letting MD know pt is anxious for DC and will get ride planned. Reported this to pt when phone delivered. pt on commode at this time.Nursing Note:
--- NOTE | 2019-10-03 15:43 | PDOC.CMDIS ---
- If Service Date Differs Date of service: 10/03/19 Time of Service: 15:44 LACE Index Scoring Tool - Questions: Length of Stay (in days): 4 - 6 Acuity (Admit via E.D.?): Yes E.D. Visits: 1 - Answers: Total Score: 8 Risk of Readmission: Low Risk Care Management Discharge Reason for Hospitalization: Ileus, alcoholic gastritis, alcohol withdrawal Discharge Plan: Courtney will return home with no additional services. She is already connected with a manager disaster recovery, Gabriela, from the [facility]. She is not interested in Rehab at this time. She will follow up with her PCP and discharge plan of care. CM coordinated a ride for her with [facility], private vehicle. She is happy to return home. Patient/Family Education Needs: Review discharge instructions, discussion of self care needs including ask me three. Services Needed at Discharge: Transportation (RCT)
== END 2019-10-03 16:45 | disposition home or self-care (01) | DRG 897 ==
LOC: ER 20:49 → ICU 21:16
PROVIDERS: Emergency Medicine; Internal Medicine; Admitting Provider Family Medicine; Emergency Provider Emergency Medicine; PCP Internal Medicine; Visit Provider Family Medicine
DX: F10.239 Alcohol dependence with withdrawal, unspecified (principal); F11.20 Opioid dependence, uncomplicated; K56.7 Ileus, unspecified; D68.59 Other primary thrombophilia; K29.20 Alcoholic gastritis without bleeding; R45.1 Restlessness and agitation; M54.2 Cervicalgia; F43.10 Post-traumatic stress disorder, unspecified; F41.8 Other specified anxiety disorders; Z91.5 Personal history of self-harm; E16.2 Hypoglycemia, unspecified; E03.9 Hypothyroidism, unspecified; Z11.59 Encounter for screening for other viral diseases
CPT/HCPCS: 36415; 80048; 80053; 80307; 81025; 83690; 96361; 96374; 96375; 96376; 99223; 99231; 99232; 99233; 99239; 99252; 99285; J1650; U0003; 72050; 72072; 74018; 74177; 80320; 81003; 81015; 82150; 83605; 83735; 84100; 84439; 84443; 84484; 85025; J0131; J1885; J2060; J2405; J2560; J3010; J3480; J3490; J7042

== ENCOUNTER 2020-07-31 10:20 | Outpatient (REF) | payer MEDICAID, SELFPAY ==
[2020-07-31 13:45] LABS: HCT 40.4 % (36.0-46.0); MCH 32.9 pg (27.0-33.0); MCHC 34.7 % (32.0-36.0); MCV 94.8 fL (80-95); MPV 10.2 fL (8.0-11.0); Platelet Count 199 10^3/uL (130-400); RBC 4.26 10^6/uL (3.93-5.22); RDW 11.9 % (11.7-14.6); RDW-SD 41.5 fL; WBC 7.84 10^3/uL (4.4-10.8)
[2020-07-31 14:01] LABS: ALT 28 U/L (14-59); AST 32 U/L (15-37); Albumin 3.8 g/dL (3.4-5.0); Alkaline Phosphatase 78 U/L (46-116); Amylase 38 U/L (25-115); Anion Gap 6.5 mmol/L (3-11); BUN 11 mg/dL (7-18); Bilirubin, Total 0.7 mg/dL (0.2-1.0); CO2 30.5 mmol/L (21.0-32.0); CREATININE 0.7 mg/dL (0.55-1.02); Calcium 8.7 mg/dL (8.5-10.1); Chloride 102 mmol/L (98-107); Glucose 98 mg/dL (74-106); Lipase 27 U/L (73-393); Potassium 4.1 mmol/L (3.5-5.1); Sodium 139 mmol/L (136-145); Total Protein 6.8 g/dL (6.4-8.2)
== END 2020-07-31 10:21 | disposition home or self-care (01) ==
LOC: NCHCN 10:20
PROVIDERS: PCP Internal Medicine; Visit Provider Nurse Practitioner Family
DX: K86.1 Other chronic pancreatitis (principal)
CPT/HCPCS: 80053; 83690; 85027; 82150

== ENCOUNTER 2020-08-20 15:48 | Outpatient (REF) | payer MEDICAID, SELFPAY ==
--- NOTE | 2020-08-20 15:15 | ENDO_PTH ---
PATIENT: Courtney Craig LOC: [facility] U#:[id number] AGE/SX: 30/F ROOM: RE08/20/[address]: Stephanie Jacob DO : 1990 BED: DIS: 08/20/2020 SPEC #: [id number] RECD: 08/20/20 18:07 STATUS: PETR RE #: [id number] BELINDA: 08/20/20 15:[address]: Stephanie Jacob DEPT: Surgical Specimen RECD BY: Cherry Pratt ENTERED: 08/20/20 18:07 SP TYPE: Endo OTHR DR: Demi Cárdenas Tissues: 1 - ENDOCERVICAL BX/CURRETTE 2 - CERVICAL BIOPSY Procedures: GROSS AND MICRO LEVEL 4 Comments:
[2020-08-22 13:28] LABS: Chlamydia Result Negative (Negative); GC Result Negative (Negative)
== END 2020-08-20 15:49 | disposition home or self-care (01) ==
LOC: LBN 15:48
PROVIDERS: PCP Internal Medicine; Visit Provider Obstetrics & Gynecology
DX: N87.9 Dysplasia of cervix uteri, unspecified (principal); R87.613 High grade squamous intraepithelial lesion on cytologic smear of cervix (HGSIL)
CPT/HCPCS: 87491; 87591; 88305

== ENCOUNTER 2021-02-14 17:39 | Emergency (ER) | payer MEDICAID, SELFPAY ==
[2021-02-14] VITALS (28 sets, daily range): BP systolic 99–134; BP diastolic 69–86; PULSE 65–99; RESP 10–25; TEMP 36.5; O2SAT 97–100
--- NOTE | 2021-02-14 17:30 | RT.EKG_ITS ---
APPROVED REPORT Exam: Resting ECG Reason for Exam: SOB Patient Location: E HR:82 bpm ECG Measurements Heart Rate 82 AXIS NH 165 P 80 QRSd 96 QRS 29 QT 426 T 27 QTc 497 Conclusion Sinus rhythm...normal P axis, V-rate 60- 99 Prolonged QT interval...QTc >495mS. Sinus. No STEMI. I have reviewed and interpreted ECG and agree with software generated interpretation.
--- NOTE | 2021-02-14 17:45 | DI.CT_ITS ---
Exam(s) CT ABDOMEN PELVIS W EXAM: CT ABDOMEN PELVIS W CLINICAL HISTORY: Abdominal Pain, N/V/D, hx Pancreatitis. TECHNIQUE: Imaging Protocol: Axial computed tomography images with coronal and sagittal reformatted images were created and reviewed CONTRAST MATERIAL: Intravenous: Omnipaque 100cc Oral: None COMPARISON: CT CT ABDOMEN PELVIS W from 10/03/2019 FINDINGS: VISUALIZED LUNG BASES: No nodules nor pleural effusions evident. ABDOMEN: There 2 undigested similar-appearing pills in the stomach lumen. LIVER: There are no focal hepatic lesions evident . GALLBLADDER/BILIARY: No obvious acute gallbladder pathology. Gallbladder somewhat contracted but the re is no obvious acute gallbladder pathology. CBD is not dilated. PANCREAS: Pancreatic parenchyma appears somewhat thinned at the junction of the body and neck. There is, however, no discrete mass nor dilatation of the pancreatic duct. There is a splenule measuring 1.5 by 1.2 cm adjacent to the splenic tail and medial to the inferior aspect of the spleen. No evide nce of obvious acute pancreatitis. SPLEEN: Spleen is not enlarged. No obvious intrasplenic lesions. Splenic and portal veins are paten t. ADRENALS: There are no significant adrenal masses. KIDNEYS:No cysts evident. No solid renal masses. No calculi nor hydronephrosis.. ABDOMINAL AORTA: Abdominal aorta is not enlarged. LYMPH NODES:There is no retroperitoneal nor paraaortic adenopathy. ABDOMINAL WALL: No evidence of significant anterior abdominal wall nor inguinal hernia. GI: There is no evidence of bowel obstruction, free air, nor abscess. PELVIS: GI: No evidence of appendicitis.No evidence of sigmoid diverticulitis.However, there appears to be ci rcumferential wall thickening of the sigmoid and descending-left colon consistent with colitis. Ther e is a small amount of free fluid in the cul-de-sac. No small bowel obstruction. LYMPH NODES: There is no intrapelvic nor inguinal adenopathy. REPRODUCTIVE: Multiple small follicular cysts in both ovaries. Uterus size is normal. URINARY BLADDER: No calculi nor obvious masses evident OSSEOUS: No significant osseous lesions. IMPRESSION: 1. No obvious CT evidence of acute pancreatitis. The pancreatic parenchyma appears somewhat thin at the junction of the body and neck but without evidence of mass nor dilatation pancreatic duct. 2. No evidence of appendicitis. 3. There appears to be circumferential wall thickening of the left side of the colon below the level of the splenic flexure, possibly colitis although somewhat difficult to assess accurately without int raluminal contrast at this level. Correlation clinical findings is recommended. Study 1st read by [facility]. Final report called by myself to ER provider 02/15/2021 RADIATION DOSE DELIVERED: 602.17mGy.cm Total DLP DATA REPOSITORY: All CT scans at this facility are submitted to the National Radiology Data Registry (NRDR) Dose Index Registry (DIR) with the [employer] (ACR). RADIATION OPTIMIZATION: All CT scans at this facility use at least one of these dose optimization te chniques: automated exposure control; mA and/or kV adjustment per patient size (includes targeted exa ms where dose is matched to clinical indication); or iterative reconstruction.
[2021-02-14 17:57] LABS: Abs Immature Grans 0.03 10^3/uL (0.0-0.06); Absolute Basophil Count 0.01 10^3/uL (0.0-0.2); Absolute Lymphocyte Count 0.92 10^3/uL (1.2-3.4); Absolute Monocyte Count 0.28 10^3/uL (0.1-0.8); Absolute Neutrophil Count 9.22 10^3/uL (1.2-6.7); Basophils % 0.1; HCT 39.2 % (36.0-46.0); HGB 13.3 g/dL (11.2-15.7); Immature Grans % 0.3; Lymphocytes % 8.8; MCH 32.5 pg (27.0-33.0); MCHC 33.9 % (32.0-36.0); MCV 95.8 fL (80-95); MPV 9.3 fL (8.0-11.0); Monocytes % 2.7; Neutrophils % 88.1; Nucleated RBC 0 %; Platelet Count 224 10^3/uL (130-400); RBC 4.09 10^6/uL (3.93-5.22); RDW 12.1 % (11.7-14.6); RDW-SD 42.5 fL; WBC 10.46 10^3/uL (4.4-10.8)
--- NOTE | 2021-02-14 17:57 | ED.GENADUL_ITS ---
Discharge Plan Disposition Patient Disposition: HOME Condition: Stable Discharge Details Clinical Impression: Dehydration, Nausea & vomiting Primary Care Provider: Demi Cárdenas ED Provider: Liliya Monahan Home Meds and New Rx's Prescriptions: New ondansetron 4 mg tablet,disintegrating 4 mg PO Q8H PRN (Reason: nausea and vomiting) 5 Days Qty: 15 RF: 0 No Action buprenorphine-naloxone [Suboxone] 8-2 mg film 1 film buccal DAILY RF: 0 lorazepam [Ativan] 1 mg tablet 1 mg PO Q6H PRN PRN (Reason: alcohol withdrawal) Qty: 12 RF: 0 Discharge Instructions Instructions: Dehydration (ED), Acute Nausea and Vomiting (ED) Additional Instructions: CT and labs show no indication for what caused your pain and/or symptoms. Please take the nausea medications as directed 20 to 30 minutes prior to arrival. Follow up with primary care provider in 3-5 days. Return to ED sooner if any worsening or concerns. Increase oral fluids. Please take Tylenol or Ibuprofen with food every 4-6 hours as needed for pain and swelling. Covid swab was negative today. Referrals: Demi Cárdenas [Primary Care Provider] - Medical Decision Making 31-year-old female presents to the ER via EMS with chief complaint of nausea vomiting diarrhea, abdominal pain for the last 48 hours. Patient reports she does have a history of pancreatitis does drink alcohol daily. She reports she is unable to keep anything down for the last 2 days. She does complain of some left upper quadrant abdominal pain. She reports chills, dizziness and diaphoresis. She was given Zofran 4 mg IV by EMS prior to arrival. She has a past medical history of endometriosis and PID, protein C deficiency, pancreatitis, opioid abuse. 1920: Patient requesting Lorazepam, order placed. Labs are largely unremarkable, sodium 136 potassium 4.0, anion gap 11.8, glucose 109 total bilirubin 1.5, urinalysis shows greater than 1 ketones trace blood, 3- 5 RBCs no leukocytes or nitrites. Covid is negative. CBC is largely within normal limits. No leukocytosis. CT results as noted below. CT ABDOMEN PELVIS W 12/01/2019 13:16 FINDINGS: Liver: Normal. No mass. Gallbladder and bile ducts: Normal. No calcified stones. No ductal dilation. Pancreas: Normal. No ductal dilation. Spleen: Normal. No splenomegaly. Adrenal glands: Normal. No mass. Kidneys and ureters: Normal. No hydronephrosis. Stomach and bowel: Unremarkable. No obstruction. No mucosal thickening. Appendix: No evidence of appendicitis. Intraperitoneal space: Trace free fluid in the cul-de-sac. Vasculature: Unremarkable. No abdominal aortic aneurysm. Lymph nodes: Unremarkable. No enlarged lymph nodes. Urinary bladder: Unremarkable as visualized. Reproductive: Unremarkable as visualized. Bones/joints: Unremarkable. No acute fracture. Soft tissues: Umbilical hernia. IMPRESSION: No acute findings. Thank you for allowing us to participate in the care of your patient. Dictated and Authenticated by: More Shearer MD New IV ordered per medical staff specialist. Patient is receiving IV fluids. Patient was given Zofran ODT and a p.o. challenge with some juice. Discussed the CT and lab results with her. Plan is to discharge with Zofran to go and follow-up with PCP. HPI General Mode of arrival: EMS . Date/Time Provider Initiated Documentation: 02/14/21 17:40 . Limitations to Documentation: no limitations . Information obtained by: patient, EMS, RN notes reviewed and old records rev iewed . HPI Narrative: 31-year-old female presents to the ER via EMS with chief complaint of nausea vomiting diarrhea, abdominal pain for the last 48 hours. Patient reports she does have a history of pancreatitis does drink alcohol daily. She reports she is unable to keep anything down for the last 2 days. She does complain of some left upper quadrant abdominal pain. She reports chills, dizziness and diaphoresis. She was given Zofran 4 mg IV by EMS prior to arrival. She has a past medical history of endometriosis and PID, protein C deficiency, pancreatitis, opioid abuse. Related Data Home Medications Medication Instructions Recorded Confirmed buprenorphine-naloxone [Suboxone] 1 film BUCCAL DAILY 09/29/19 02/14/21 lorazepam [Ativan] 1 mg PO Q6H PRN PRN #12 tab 10/03/19 02/14/21 ondansetron 4 mg PO Q8H PRN 5 Days #15 tab 02/14/21 Previous Rx's Medication Instructions Recorded lorazepam [Ativan] 1 mg PO Q6H PRN PRN #12 tab 10/03/19 ondansetron 4 mg PO Q8H PRN 5 Days #15 tab 02/14/21 Allergies Allergy/AdvReac Type Severity Reaction Status Date / Time codeine Allergy Severe Nausea,vomiting Verified 02/14/21 17:41 and feel like she is going to pass out General Stated Complaint: Nausea/Vomit/Diar CARLOS: 3 Review of Systems All systems reviewed & are unremarkable except as noted in HPI and below Gastrointestinal Gastrointestinal: Reports abdominal pain, Reports diarrhea and Reports nausea PFSH All Active Problems (Updated 02/14/21 @ 20:23 by Liliya Monahan) Dehydration (Acute) Nausea & vomiting (Acute) Substance use disorder (Acute) Hypokalemia (Acute) Subclinical hypothyroidism (Chronic) COVID-19 ruled out by laboratory testing (Acute) Discharge planning issues (Acute) DVT prophylaxis (Acute) Opioid abuse, in remission (Chronic) Protein C deficiency (Chronic) Hypothyroidism (Chronic) History of pancreatitis (Acute) History of attempted suicide (Acute) HGSIL (high grade squamous intraepithelial lesion) on Pap smear of cervix (Acute) Anxiety with depression (Chronic) Alcoholic gastritis (Acute) Medical History Endometriosis not confirmed with biopsy Female pelvic inflammatory disease after IUD Social History Smoking/Tobacco Use Status: Never Smoking risk assessment performed?: Yes Alcohol Intake: current Alcohol Intake frequency: 3 or more drinks per day Alcohol type: beer Drug use: Daily Substance use type: former substance user and marijuana Do you feel safe at home: Yes Do you feel safe in your relationship?: Yes Exam Narrative Exam Narrative: Constitutional: Alert and oriented x3. Appears stated age. Normal body habitus. Head: Normocephalic, no trauma. Eyes: Pupils PERRL, Red reflex noted, EOM's intact. Eyelids symmetrical without lesions, discharge, or swelling. ENT: Bilateral TM's WNL, External ear normal to inspection, no mastoid TTP, swelling, or erythema, Nasal turbinates WNL, no nasal discharge. Normal dentition, Posterior pharynx WNL, no exudate. Chest: RRR, Normal S1, S2, distal pulses intact. Resp: Lungs clear to auscultation bilaterally, no wheezes, rales, or rhonchi. Abdomen: Soft, non-distended, Normoactive bowel sounds all 4 quads. Tenderness to LUQ with palpation. Musculoskeletal: Normal gait, 5/5 strength to all four extremities. Skin: No suspicious rashes or lesions. Capillary refill less than 2 sec. Neurologic: Cranial nerves II-XII intact. Alert and oriented x 3. Motor: No deficits noted. Sensory: Intact bilaterally all 4 extremities. Reflexes: DTR's intact bilaterally.. Hematologic/Lymphatic: No ecchymosis, no lymphadenopathy. Course Vital Signs Vital signs: Vital Signs Temperature 36.5 C 02/14/21 17:36 Pulse 89 02/14/21 17:36 Respiratory Rate 18 02/14/21 17:36 Blood Pressure 134/86 02/14/21 17:36 Pulse Oximetry 98 02/14/21 17:36 Temperature 36.5 C 02/14/21 17:36 Temperature Source Temporal Artery Scan 02/14/21 17:36 Pulse 89 02/14/21 17:36 Respiratory Rate 18 02/14/21 17:36 Respiratory Effort 02/14/21 17:42 Blood Pressure 134/86 02/14/21 17:36 Blood Pressure Position Supine 02/14/21 17:36 Pulse Oximetry 98 02/14/21 17:36 Oxygen Delivery Method Room Air 02/14/21 17:36 Oxygen Flow Rate 0 02/14/21 17:36 Lab/Test Results Lab/Test Results: Laboratory Tests Range/Units 02/14/21 17:53 WBC (4.4-10.8) 10^3/uL 10.46 RBC (3.93-5.22) 10^6/uL 4.09 Hgb (11.2-15.7) g/dL 13.3 Hct (36.0-46.0) % 39.2 MCV (80-95) fL 95.8 H MCH (27.0-33.0) pg 32.5 MCHC (32.0-36.0) % 33.9 RDW (11.7-14.6) % 12.1 Plt Count (130-400) 10^3/uL 224 MPV (8.0-11.0) fL 9.3 Immature Gran % 0.3 Neutrophils % 88.1 Lymphocytes % 8.8 Monocytes % 2.7 Eosinophils % 0.0 Basophils % 0.1 Nucleated RBC % % 0 Absolute Neutrophils (1.2-6.7) 10^3/uL 9.22 H Absolute Lymphocytes (1.2-3.4) 10^3/uL 0.92 L Absolute Monocytes (0.1-0.8) 10^3/uL 0.28 Absolute Eosinophils (0.0-0.7) 10^3/uL 0.00 Absolute Basophils (0.0-0.2) 10^3/uL 0.01
[2021-02-14 18:13] LABS: ALT 40 U/L (14-59); AST 29 U/L (15-37); Albumin 4.2 g/dL (3.4-5.0); Alkaline Phosphatase 105 U/L (46-116); Anion Gap 11.8 mmol/L (3-11); BUN 13 mg/dL (7-18); Bilirubin, Total 1.5 mg/dL (0.2-1.0); CO2 24.2 mmol/L (21.0-32.0); CREATININE 0.7 mg/dL (0.55-1.02); Calcium 9.1 mg/dL (8.5-10.1); Chloride 100 mmol/L (98-107); Glucose 109 mg/dL (74-106); Magnesium 1.9 mg/dL (1.8-2.4); Sodium 136 mmol/L (136-145); Total Protein 7.7 g/dL (6.4-8.2)
[2021-02-14 18:17] LABS: Source Nasal/Nares
[2021-02-14 18:22] LABS: Troponin I < 50 ng/L (<or=60)
[2021-02-14 18:22] LABS: Bilirubin Negative (Negative); Blood Trace-intact (Negative); Clarity Clear (Clear); Glucose Negative (Negative); Ketones >=160 mg/dL (Negative); Leukocyte Esterase Negative (Negative); Nitrite Negative (Negative); Specific Gravity >= 1.030 (1.005-1.025); Urobilinogen 0.2 EU/dL (Up TO 0.2)
[2021-02-14 18:29] LABS: Bacteria Few HPF (Negative); Crystals Negative HPF (Negative); Epithelial Cells Many HPF (Negative); Mucus Moderate (Negative)
[2021-02-14 18:30] LABS: C & S Indicated? No/Sq. Contamination; Casts Negative LPF (Negative)
[2021-02-14] MEDS: Normal Saline 1,000 ML 1000 ML IV (18:40)
[2021-02-14] MEDS: Omnipaque 350 MG/ML 100 ML BTL IJ (19:06)
[2021-02-14] MEDS: Normal Saline Flush 10 ML SYR IVP (19:08)
[2021-02-14 19:23] LABS: Lipase 23 U/L (73-393)
[2021-02-14] MEDS: LORazepam 2 MG/ML VIAL 0.5 MG IVP (19:30)
[2021-02-14 19:55] LABS: COVID-19 PCR Negative (Negative)
--- NOTE | 2021-02-14 19:56 | DI.VRAD_ITS ---
PROCEDURE INFORMATION: Exam: CT Abdomen And Pelvis With Contrast Exam date and time: 02/14/2021 5:52 PM Age: 31 years old Clinical indication: Other: Abd pain, n/v/d, h/o pancreatitis, endometriosis TECHNIQUE: Imaging protocol: Computed tomography of the abdomen and pelvis with contrast. COMPARISON: CT ABDOMEN PELVIS W 12/01/2019 13:16 FINDINGS: Liver: Normal. No mass. Gallbladder and bile ducts: Normal. No calcified stones. No ductal dilation. Pancreas: Normal. No ductal dilation. Spleen: Normal. No splenomegaly. Adrenal glands: Normal. No mass. Kidneys and ureters: Normal. No hydronephrosis. Stomach and bowel: Unremarkable. No obstruction. No mucosal thickening. Appendix: No evidence of appendicitis. Intraperitoneal space: Trace free fluid in the cul-de-sac. Vasculature: Unremarkable. No abdominal aortic aneurysm. Lymph nodes: Unremarkable. No enlarged lymph nodes. Urinary bladder: Unremarkable as visualized. Reproductive: Unremarkable as visualized. Bones/joints: Unremarkable. No acute fracture. Soft tissues: Umbilical hernia. IMPRESSION: No acute findings. Dictated and Authenticated by: More Shearer MD. Ordering:SEVERO Lovell MD
[2021-02-14] MEDS: Ondansetron O.D.T. 4 MG TABEF PO (20:35)
== END 2021-02-14 20:46 | disposition home or self-care (01) ==
PROVIDERS: Emergency Provider Registered Nurse Emergency; PCP Internal Medicine
DX: R11.2 Nausea with vomiting, unspecified (principal); E86.0 Dehydration; R19.7 Diarrhea, unspecified; R10.12 Left upper quadrant pain; R42 Dizziness and giddiness
CPT/HCPCS: 36415; 80053; 81025; 83690; 87635; 93005; 96361; 96365; 96375; 99285; 74177; 81003; 81015; 83735; 84484; 85025; 93010; 99284; J2060; J3490

== ENCOUNTER 2021-04-11 17:59 | Emergency (ER) | payer MEDICAID, SELFPAY ==
[2021-04-11 17:59] VITALS: BP 110/69; PULSE 75; RESP 20; TEMP 38; O2SAT 98
--- NOTE | 2021-04-11 18:30 | DI.RAD_ITS ---
Exam(s) XR PORTABLE CHEST AP EXAM: XR PORTABLE CHEST AP CLINICAL HISTORY: fever TECHNIQUE: 2D digital imaging was performed of the chest. One image was obtained. An AP view was ob tained. COMPARISON: CR XR THORACIC SPINE COMPLETE from 10/03/2019 FINDINGS: MEDIASTINUM: Normal. HEART: Normal. PULMONARY VASCULATURE: Normal. LUNGS: Clear. PLEURAL SPACE: No pleural effusion or pneumothorax. BONE:Within normal limits for the patient's age. OTHER FINDINGS:Normal. IMPRESSION: No acute pulmonary findings. DATA REPOSITORY: RADIATION DOSE DELIVERED:
[2021-04-11 19:04] LABS: Abs Immature Grans 0.03 10^3/uL (0.0-0.06); Absolute Basophil Count 0.01 10^3/uL (0.0-0.2); Absolute Eosinophil Count 0.03 10^3/uL (0.0-0.7); Absolute Lymphocyte Count 2.25 10^3/uL (1.2-3.4); Absolute Monocyte Count 0.45 10^3/uL (0.1-0.8); Absolute Neutrophil Count 5.92 10^3/uL (1.2-6.7); Basophils % 0.1; Eosinophils % 0.3; HCT 39.1 % (36.0-46.0); HGB 13.5 g/dL (11.2-15.7); Immature Grans % 0.3; Lymphocytes % 25.9; MCH 32.5 pg (27.0-33.0); MCHC 34.5 % (32.0-36.0); MPV 9.6 fL (8.0-11.0); Monocytes % 5.2; Neutrophils % 68.2; Nucleated RBC 0 %; Platelet Count 222 10^3/uL (130-400); RBC 4.16 10^6/uL (3.93-5.22); RDW-SD 41.9 fL; WBC 8.69 10^3/uL (4.4-10.8)
[2021-04-11] MEDS: Normal Saline 1,000 ML 1000 ML IV (19:15)
[2021-04-11] MEDS: Ondansetron 4 MG/2 ML VIAL IVP (19:17)
[2021-04-11 19:18] LABS: ALT 27 U/L (14-59); AST 20 U/L (15-37); Albumin 3.9 g/dL (3.4-5.0); Alkaline Phosphatase 65 U/L (46-116); Amylase 26 U/L (25-115); Anion Gap 5.8 mmol/L (3-11); BUN 8 mg/dL (7-18); Bilirubin, Total 1.7 mg/dL (0.2-1.0); CO2 29.2 mmol/L (21.0-32.0); CREATININE 0.9 mg/dL (0.55-1.02); Calcium 9.2 mg/dL (8.5-10.1); Chloride 101 mmol/L (98-107); Glucose 101 mg/dL (74-106); Lipase 22 U/L (73-393); Potassium 4.3 mmol/L (3.5-5.1); Sodium 136 mmol/L (136-145); Total Protein 7.2 g/dL (6.4-8.2)
[2021-04-11 19:19] LABS: HCG Qual (Serum) Negative
[2021-04-11] MEDS: fentaNYL 100 MCG/2 ML VIAL IVP (19:21)
[2021-04-11 19:22] LABS: Magnesium 2.3 mg/dL (1.8-2.4)
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
--- NOTE | 2021-04-11 19:38 | DI.VRAD_ITS ---
PROCEDURE INFORMATION: Exam: XR Chest Exam date and time: 04/11/2021 6:49 PM Age: 31 years old Clinical indication: Other: Fever TECHNIQUE: Imaging protocol: XR of the chest. Views: 1 view. COMPARISON: CT ABDOMEN PELVIS W 02/14/2021 7:01 PM FINDINGS: Lungs: Unremarkable. No consolidation. Pleural spaces: Unremarkable. No pleural effusion. No pneumothorax. Heart/Mediastinum: Unremarkable. No cardiomegaly. Bones/joints: Unremarkable. IMPRESSION: No acute findings. Dictated and Authenticated by: Tony Boyer MD. Ordering:KEVIN Carey MD
[2021-04-11 19:42] LABS: Source Nasopharynx
[2021-04-11] MEDS: Acetaminophen 500 MG TAB 1000 MG PO (19:55)
[2021-04-11] MEDS: LORazepam 2 MG/ML VIAL 1 MG IVP (19:57)
[2021-04-11 20:01] LABS: Bilirubin Negative (Negative); Blood Negative (Negative); Clarity Clear (Clear); Glucose Negative (Negative); Ketones Negative (Negative); Leukocyte Esterase Negative (Negative); Nitrite Negative (Negative); Urobilinogen 0.2 EU/dL (Up TO 0.2)
--- NOTE | 2021-04-11 20:15 | DI.CT_ITS ---
Exam(s) CT ABDOMEN PELVIS W EXAM: CT ABDOMEN PELVIS W CLINICAL HISTORY: pain llq TECHNIQUE: Imaging Protocol: Axial computed tomography images with coronal and sagittal reformatted images were created and reviewed CONTRAST MATERIAL: Intravenous: Omnipaque 350 Contrast volume:77 mL Oral: No COMPARISON: CT CT ABDOMEN PELVIS W from 02/14/2021 FINDINGS: ABDOMEN: Lung Bases: Normal where visualized. Liver: Normal density. No measurable mass. Portal, Superior Mesenteric, and Splenic Veins: Unremarkable. Gallbladder and Biliary Tract: No radiodense calculus or dilation. Pancreas: Normal density, no abnormal calcifications or inflammatory process. Spleen: Normal. Adrenals: No masses seen. Kidneys: Normal size, contour and axis. No radiodense stones or obstructive uropathy. No masses seen. Abdominal Aorta: Abdominal portion non-dilated. Bowel: No obstruction or bowel wall thickening. No evidence of appendicitis. There is an appendicoli th seen in the base of the appendix. Peritoneal Cavity: No ascites, collection or mesenteric inflammatory response. No free air. Lymph Nodes: Within normal limits. Bones: Within normal limits for the patient's age. Soft Tissues: Unremarkable. PELVIS: Bladder: Symmetric distention, no gross wall thickening. Reproductive Organs: Unremarkable as visualized. Lymph Nodes: Within normal limits. Bones: Within normal limits for the patient's age. IMPRESSION: No definite acute abdominal pelvic process. Please correlate clinically. RADIATION DOSE DELIVERED: 566.87mGy.cm Total DLP DATA REPOSITORY: All CT scans at this facility are submitted to the National Radiology Data Registry (NRDR) Dose Index Registry (DIR) with the [employer] ([employer]). RADIATION OPTIMIZATION: All CT scans at this facility use at least one of these dose optimization te chniques: automated exposure control; mA and/or kV adjustment per patient size (includes targeted exa ms where dose is matched to clinical indication); or iterative reconstruction.
[2021-04-11 20:25] LABS: COVID-19 PCR Negative (Negative); Influenza A PCR Negative (Negative); Influenza B PCR Negative (Negative); RSV PCR Negative (Negative)
[2021-04-11 20:56] LABS: Lactate 0.8 mmol/L (0.6-1.4)
[2021-04-11] MEDS: Omnipaque 350 MG/ML 100 ML BTL IJ (21:25)
[2021-04-11] MEDS: Normal Saline Flush 10 ML SYR IVP (21:26)
[2021-04-11 21:32] VITALS: BP 143/87; PULSE 59; RESP 20; O2SAT 99
--- NOTE | 2021-04-11 21:35 | DI.VRAD_ITS ---
PROCEDURE INFORMATION: Exam: CT Abdomen And Pelvis With Contrast Exam date and time: 04/11/2021 8:29 PM Age: 31 years old Clinical indication: Other: Pain llq TECHNIQUE: Imaging protocol: Computed tomography of the abdomen and pelvis with contrast. Contrast material: OMNIPAQUE 350; Contrast volume: 77 ml; Contrast route: INTRAVENOUS (IV); COMPARISON: CT ABDOMEN PELVIS W 02/14/2021 7:01 PM FINDINGS: Lungs: Lung bases are clear. Liver: Normal. No mass. Gallbladder and bile ducts: Normal. No calcified stones. No ductal dilation. Pancreas: Normal. No ductal dilation. Spleen: Normal. No splenomegaly. Adrenal glands: Normal. No mass. Kidneys and ureters: Normal. No hydronephrosis. Stomach and bowel: Unremarkable stomach. Nondilated small bowel. Moderate fluid noted in the jejunum. Fat planes around loops of small bowel are indistinct. There are no inflammatory changes observed around the colon. Appendix: Negative for inflammation around the appendix. An appendicolith is noted at the base. Intraperitoneal space: Mild mesenteric fat stranding. No significant free fluid. Negative for free air. Negative for abscess. Vasculature: Unremarkable. No abdominal aortic aneurysm. Lymph nodes: Mesenteric lymph nodes are mildly prominent. Negative for pathologic lymphadenopathy. Urinary bladder: Unremarkable as visualized. Reproductive: Unremarkable as visualized. Bones/joints: Unremarkable. No acute fracture. Soft tissues: Unremarkable. IMPRESSION: Findings of enteritis with reactive mesenteric inflammation. Dictated and Authenticated by: Tony Boyer MD. Ordering:KEVIN Carey MD
[2021-04-11 22:00] VITALS: BP 128/83; PULSE 66; RESP 20; O2SAT 99
[2021-04-11] MEDS: cefTRIAXone 1 GM/50 ML BAG IVPB (22:14)
[2021-04-11 22:56] VITALS: BP 124/66; PULSE 66; RESP 18; O2SAT 100
[2021-04-15 11:01] LABS: Hepatitis C Ab w Rflx HCV PCR Negative (Negative)
[2021-04-15 11:34] LABS: Syphilis Serology (RPR) Negative (Negative)
[2021-04-15 12:01] LABS: HBs Antibody, Quant 66.6 mIU/mL (See Note); Hep B Surface Ab Positive (See Note); Hepatitis B Core Antibody Negative (Negative); Hepatitis B Surface Antigen Negative (Negative)
[2021-04-15 15:33] LABS: Chlamydia Result Negative (Negative); GC Result Negative (Negative)
== END 2021-04-11 23:09 | disposition home or self-care (01) ==
PROVIDERS: Emergency Provider Physician Assistant; PCP Internal Medicine
DX: K52.9 Noninfective gastroenteritis and colitis, unspecified (principal); F10.20 Alcohol dependence, uncomplicated; T76.21XA Adult sexual abuse, suspected, initial encounter; Z11.3 Encounter for screening for infections with a predominantly sexual mode of transmission
CPT/HCPCS: 36415; 80053; 81025; 83690; 86704; 86706; 86803; 87040; 87340; 87491; 87591; 87637; 96361; 96365; 96375; 99284; 99285; 71045; 74177; 81003; 82150; 83605; 83735; 84703; 85025; 86592; 87480; 87510; 87660; J0696; J2060; J2405; J3010; J3490

== ENCOUNTER 2021-08-30 17:48 | Emergency (ER) | payer MEDICAID, SELFPAY ==
[2021-08-30 17:52] VITALS: BP 144/118; PULSE 92; RESP 18; TEMP 36.8; O2SAT 99
--- NOTE | 2021-08-30 18:25 | ED.GENADUL_ITS ---
Discharge Plan Disposition Patient Disposition: HOME Condition: Stable Discharge Details Clinical Impression: Pain, dental Primary Care Provider: Demi Cárdenas ED Provider: Berlin Zarate Home Meds and New Rx's Prescriptions: New amoxicillin-pot clavulanate 875-125 mg tablet 1 tab PO BID 7 Days Qty: 14 0RF No Action buprenorphine-naloxone [Suboxone] 8-2 mg film 1 film buccal DAILY Label Comments: PLACE 1 FILM UNDER THE TONGUE EVERY DAY FOR 7 DAYS lorazepam [Ativan] 1 mg tablet 1 mg PO Q6H PRN PRN (Reason: alcohol withdrawal) Qty: 12 0RF Rx Instructions: needs new rx dicyclomine 10 mg capsule 10 mg PO TID Qty: 10 0RF lorazepam [Ativan] 1 mg tablet 1 mg PO BID PRNQty: 4 0RF doxycycline hyclate 100 mg tablet 100 mg PO BID Qty: 14 0RF lorazepam 1 mg tablet 1 mg PO Q6H PRN (Reason: anxiety) Qty: 10 0RF dicyclomine 10 mg capsule 10 mg PO TID PRN (Reason: stomach upset) Qty: 10 0RF Discharge Instructions Instructions: Toothache (ED) Additional Instructions: Please follow-up with dentist in the next week. Please be seen by your primary care physician. Please return the emergency department for develop worsening pain swelling fevers chills change in voice or speech inability to swallow or any other abnormal symptoms. Medical Decision Making 31-year-old female presents with right lower jaw dental pain over the past day. Hemodynamically stable afebrile nontoxic tolerating secretions normal voice, no submandibular or submental induration or fluctuance, no definitive dental abscess palpated, appears uncomfortable does have some nausea no active vomiting. Likely dental infection. Low suspicion for Doreen's angina or deep space infection of head or neck given history and physical. Will trial p.o. Augmentin, Zofran Toradol and Tylenol. Will encourage patient to follow-up with dentist will give strict return precautions for worsening symptoms. HPI General Date/Time Provider Initiated Documentation: 08/30/21 18:08 . HPI Narrative: 31-year-old female presents with right lower jaw dental pain over the past day, so she with mild nausea, denies fevers or chills. Does endorse missing her dose of Suboxone today. Related Data Home Medications Medication Instructions Recorded Confirmed buprenorphine 8 mg-naloxone 2 mg 1 film buccal DAILY 09/29/19 08/30/21 sublingual film (Suboxone) lorazepam 1 mg tablet (Ativan) 1 mg PO Q6H PRN PRN alcohol 10/03/19 08/30/21 withdrawal #12 tabs dicyclomine 10 mg capsule 10 mg PO TID #10 caps 04/11/21 doxycycline hyclate 100 mg tablet 100 mg PO BID #14 tabs 04/11/21 lorazepam 1 mg tablet (Ativan) 1 mg PO BID PRN #4 tabs 04/11/21 08/30/21 dicyclomine 10 mg capsule 10 mg PO TID PRN stomach upset #10 04/12/21 caps lorazepam 1 mg tablet 1 mg PO Q6H PRN anxiety #10 tabs 04/12/21 08/30/21 amoxicillin 875 mg-potassium 1 tab PO BID 7 days #14 tabs 08/30/21 clavulanate 125 mg tablet Previous Rx's Medication Instructions Recorded lorazepam 1 mg tablet (Ativan) 1 mg PO Q6H PRN PRN alcohol 10/03/19 withdrawal #12 tabs dicyclomine 10 mg capsule 10 mg PO TID #10 caps 04/11/21 doxycycline hyclate 100 mg tablet 100 mg PO BID #14 tabs 04/11/21 lorazepam 1 mg tablet (Ativan) 1 mg PO BID PRN #4 tabs 04/11/21 dicyclomine 10 mg capsule 10 mg PO TID PRN stomach upset #10 04/12/21 caps lorazepam 1 mg tablet 1 mg PO Q6H PRN anxiety #10 tabs 04/12/21 amoxicillin 875 mg-potassium 1 tab PO BID 7 days #14 tabs 08/30/21 clavulanate 125 mg tablet Allergies Allergy/AdvReac Type Severity Reaction Status Date / Time codeine Allergy Severe Nausea,vomiting Verified 08/30/21 17:55 and feel like she is going to pass out General Stated Complaint: DentalOral CARLOS: 4 Review of Systems Narrative: Review of Systems Constitutional: negative Eyes: negative ENT: Dental pain Cardiovascular: negative Respiratory: negative Gastrointestinal: negative : negative Musculoskeletal: negative Skin: negative Neurologic: negative Psych: negative PFSH All Active Problems (Updated 08/30/21 @ 20:18 by Berlin Zarate MD) Pain, dental (Acute) Substance use disorder (Acute) Hypokalemia (Acute) Subclinical hypothyroidism (Chronic) COVID-19 ruled out by laboratory testing (Acute) Discharge planning issues (Acute) DVT prophylaxis (Acute) Opioid abuse, in remission (Chronic) Protein C deficiency (Chronic) Hypothyroidism (Chronic) History of pancreatitis (Acute) History of attempted suicide (Acute) HGSIL (high grade squamous intraepithelial lesion) on Pap smear of cervix (Acute) Anxiety with depression (Chronic) Alcoholic gastritis (Acute) Medical History Endometriosis not confirmed with biopsy Female pelvic inflammatory disease after IUD Social History Smoking/Tobacco Use Status: Never Smoking risk assessment performed?: Yes Alcohol Intake: former Drug use: Daily Substance use type: former substance user and marijuana Do you feel safe at home: Yes Do you feel safe in your relationship?: Yes Exam Narrative Exam Narrative: Physical Examination General: alert, awake, cooperative, resting comfortably, no acute distress HEENT: Poor dentition, multiple dental caries, multiple chronic appearing dental fractures, no palpable fluctuance, no induration or fluctuance to submental or submandibular region; normocephalic, atraumatic; PERRL, EOM intact, conjunctiva normal; no nasal discharge; moist mucous membranes, oral and pharyngeal mucosa normal, tolerating secretions Neck: supple, trachea midline; full ROM Chest: normal to inspection Respiratory: normal respiratory effort, speaking in full sentences, clear to auscultation, no wheezing, rales or rhonchi Cardiac: regular rate, regular rhythm, S1S2 intact, no murmurs rubs or gallops GI: abdomen soft, non-tender, non-distended; no palpable mass or hepatosplenomegaly Skin: no lesions, rashes or trauma appreciated Neuro: AAOx3, normal speech, moving all extremities Psych: Appropriate mood and affect Course Vital Signs Vital signs: Vital Signs Temperature 36.8 C 08/30/21 17:52 Pulse 92 H 08/30/21 17:52 Respiratory Rate 18 08/30/21 17:52 Blood Pressure 144/118 H 08/30/21 17:52 Pulse Oximetry 99 08/30/21 17:52 Temperature 36.8 C 08/30/21 17:52 Temperature Source Temporal Artery Scan 08/30/21 17:52 Pulse 92 H 08/30/21 17:52 Respiratory Rate 18 08/30/21 17:52 Respiratory Effort Non-Labored 08/30/21 17:56 Blood Pressure 144/118 H 08/30/21 17:52 Blood Pressure Position Sitting 08/30/21 17:52 Pulse Oximetry 99 08/30/21 17:52 Oxygen Delivery Method Room Air 08/30/21 17:52 Oxygen Flow Rate 0 08/30/21 17:52 PAWSS Have you Been Recently Intoxicated or Drunk Within the Last 30 days?: Yes Have you Ever Experienced Previous Episodes of Alcohol Withdrawal?: Yes Have you ever Experienced Withdrawal Seizures?: No Have you ever Experienced Delirium Tremens(DT)s?: Yes Have you ever undergone Alcohol Rehabilitation Treatment (i.e, inpt ot outpatient treatment programs)?: No Have you ever Experienced Blackouts?: Yes Have you ever Combined Alcohol with other Downers within the last 90 days?: No Have you ever Combined Alcohol with any other Substance of Abuse during the last 90 days?: No Positive Blood Alcohol level on Presentation? [PCS.BAL]: No Evidence of Increased Autonomic Activity (i.e. HR>120, tremor, sweating, agitation, nausea)?: No Result: 4
[2021-08-30] MEDS: Acetaminophen 325 MG TAB 650 MG PO (18:34)
[2021-08-30] MEDS: Ketorolac 15 MG/ML VIAL IM (18:34)
[2021-08-30] MEDS: Ondansetron O.D.T. 4 MG TABEF SL (18:34)
[2021-08-30] MEDS: Amoxicillin 875/Clav. 125 TAB PO (18:34)
== END 2021-08-30 20:34 | disposition home or self-care (01) ==
PROVIDERS: Emergency Provider Emergency Medicine; PCP Internal Medicine
DX: K08.89 Other specified disorders of teeth and supporting structures (principal)
CPT/HCPCS: 96372; 99284; 99283; J1885

== ENCOUNTER 2021-08-31 22:56 | Emergency (ER) | payer MEDICAID, SELFPAY ==
[2021-08-31 23:09] VITALS: BP 90/47; PULSE 109; RESP 20; TEMP 36.8; O2SAT 99
[2021-08-31] MEDS: Ondansetron O.D.T. 4 MG TABEF PO (23:16)
--- NOTE | 2021-08-31 23:24 | ED.GENADUL_ITS ---
Discharge Plan Disposition Patient Disposition: HOME Condition: Stable Discharge Details Clinical Impression: Pain, dental Primary Care Provider: Demi Cárdenas ED Provider: Cherry Alonzo Home Meds and New Rx's Prescriptions: New ondansetron HCl 4 mg tablet 4 mg PO DAILY PRN4 Days Qty: 7 0RF Continued buprenorphine-naloxone [Suboxone] 8-2 mg film 1 film buccal DAILY Label Comments: PLACE 1 FILM UNDER THE TONGUE EVERY DAY FOR 7 DAYS lorazepam [Ativan] 1 mg tablet 1 mg PO Q6H PRN PRN (Reason: alcohol withdrawal) Qty: 12 0RF Rx Instructions: needs new rx dicyclomine 10 mg capsule 10 mg PO TID Qty: 10 0RF lorazepam [Ativan] 1 mg tablet 1 mg PO BID PRNQty: 4 0RF doxycycline hyclate 100 mg tablet 100 mg PO BID Qty: 14 0RF lorazepam 1 mg tablet 1 mg PO Q6H PRN (Reason: anxiety) Qty: 10 0RF dicyclomine 10 mg capsule 10 mg PO TID PRN (Reason: stomach upset) Qty: 10 0RF amoxicillin-pot clavulanate 875-125 mg tablet 1 tab PO BID 7 Days Qty: 14 0RF Discharge Instructions Instructions: Toothache (ED) Additional Instructions: Take ibuprofen and Tylenol as needed for pain Take Zofran as needed for nausea and vomiting The most important thing is to continue on your antibiotics and establish care with a dentist Referrals: Demi Cárdenas [Primary Care Provider] - Discharge Data Discharge Date/Time-TO BE ENTERED AT DEPARTURE: 08/31/21 23:40 Medical Decision Making Patient is requesting opiate medication, I do not feel comfortable giving her opiate medication with Suboxone current prescription I did offer Toradol and a dental block both of which patient declined Zofran prescription for home Requesting discharge at this time Alert, ambulatory, no active vomiting in the emergency department Instructed to follow-up with dentist Medical Records Medical records reviewed: Yes I reviewed the patient's medical records. HPI General Date/Time Provider Initiated Documentation: 08/31/21 22:56 . HPI Narrative: This 31-year-old female presents worsening right lower dental pain. She was started on Augmentin yesterday evening. She has been taking ibuprofen and Tylenol for pain. She has a history of opiate abuse and is on Suboxone. She denies any difficulty swallowing, fever, chills. She states she has been nauseous. Reports several episodes of vomiting without blood. Denies chance of . Denies any current illicit drug use. Related Data Home Medications Medication Instructions Recorded Confirmed buprenorphine 8 mg-naloxone 2 mg 1 film buccal DAILY 09/29/19 08/31/21 sublingual film (Suboxone) lorazepam 1 mg tablet (Ativan) 1 mg PO Q6H PRN PRN alcohol 10/03/19 08/30/21 withdrawal #12 tabs dicyclomine 10 mg capsule 10 mg PO TID #10 caps 04/11/21 doxycycline hyclate 100 mg tablet 100 mg PO BID #14 tabs 04/11/21 lorazepam 1 mg tablet (Ativan) 1 mg PO BID PRN #4 tabs 04/11/21 08/31/21 dicyclomine 10 mg capsule 10 mg PO TID PRN stomach upset #10 04/12/21 08/31/21 caps lorazepam 1 mg tablet 1 mg PO Q6H PRN anxiety #10 tabs 04/12/21 08/30/21 amoxicillin 875 mg-potassium 1 tab PO BID 7 days #14 tabs 08/30/21 clavulanate 125 mg tablet ondansetron HCl 4 mg tablet 4 mg PO DAILY PRN 4 days #7 tabs 08/31/21 Previous Rx's Medication Instructions Recorded lorazepam 1 mg tablet (Ativan) 1 mg PO Q6H PRN PRN alcohol 10/03/19 withdrawal #12 tabs dicyclomine 10 mg capsule 10 mg PO TID #10 caps 04/11/21 doxycycline hyclate 100 mg tablet 100 mg PO BID #14 tabs 04/11/21 lorazepam 1 mg tablet (Ativan) 1 mg PO BID PRN #4 tabs 04/11/21 dicyclomine 10 mg capsule 10 mg PO TID PRN stomach upset #10 04/12/21 caps lorazepam 1 mg tablet 1 mg PO Q6H PRN anxiety #10 tabs 04/12/21 amoxicillin 875 mg-potassium 1 tab PO BID 7 days #14 tabs 08/30/21 clavulanate 125 mg tablet ondansetron HCl 4 mg tablet 4 mg PO DAILY PRN 4 days #7 tabs 08/31/21 Allergies Allergy/AdvReac Type Severity Reaction Status Date / Time codeine Allergy Severe Nausea,vomiting Verified 08/31/21 23:11 and feel like she is going to pass out General Stated Complaint: DentalOral CARLOS: 4 Review of Systems All systems reviewed & are unremarkable except as noted in HPI and below PFSH All Active Problems (Updated 08/31/21 @ 23:19 by JOEY Cruz) Pain, dental (Acute) Substance use disorder (Acute) Hypokalemia (Acute) Subclinical hypothyroidism (Chronic) COVID-19 ruled out by laboratory testing (Acute) Discharge planning issues (Acute) DVT prophylaxis (Acute) Opioid abuse, in remission (Chronic) Protein C deficiency (Chronic) Hypothyroidism (Chronic) History of pancreatitis (Acute) History of attempted suicide (Acute) HGSIL (high grade squamous intraepithelial lesion) on Pap smear of cervix (Acute) Anxiety with depression (Chronic) Alcoholic gastritis (Acute) Medical History Endometriosis not confirmed with biopsy Female pelvic inflammatory disease after IUD Social History Smoking/Tobacco Use Status: Never Smoking risk assessment performed?: Yes Alcohol Intake: former Drug use: Daily Substance use type: former substance user and marijuana Do you feel safe at home: Yes Do you feel safe in your relationship?: Yes Exam Const General: anxious Orientation: alert and oriented x3 HENMT Other: Patient with mild swelling with fractured tooth, #28 Neck soft palate induration, no evidence of Doreen's angina, no drooling, no trismus Eyes Pupils: PERRL Neck Other: No stridor Resp Effort & Inspection: normal respiratory effort Auscultation: clear to auscultation bilaterally Cardio Rate: tachycardic Skin General skin exam: no rashes or lesions noted Neuro General: patient alert Course Vital Signs Vital signs: Vital Signs Temperature 36.8 C 08/31/21 23:09 Pulse 109 H 08/31/21 23:09 Respiratory Rate 20 08/31/21 23:09 Blood Pressure 90/47 L 08/31/21 23:09 Pulse Oximetry 99 08/31/21 23:09 Temperature 36.8 C 08/31/21 23:09 Temperature Source Skin 08/31/21 23:09 Pulse 109 H 08/31/21 23:09 Respiratory Rate 20 08/31/21 23:09 Respiratory Effort Non-Labored 08/31/21 23:12 Blood Pressure 90/47 L 08/31/21 23:09 Pulse Oximetry 99 08/31/21 23:09 Oxygen Delivery Method Room Air 08/31/21 23:09 Oxygen Flow Rate 0 08/31/21 23:09 Pain Level 10 08/31/21 23:09
== END 2021-08-31 23:40 | disposition home or self-care (01) ==
PROVIDERS: Emergency Provider Physician Assistant; PCP Internal Medicine
DX: K03.81 Cracked tooth (principal); R00.0 Tachycardia, unspecified
CPT/HCPCS: 99283; 99284